=== PATIENT | female | born 1970 | race Caucasian/White ===

== ENCOUNTER 2020-08-21 12:48 | Outpatient (REF) | payer OTHER, SELFPAY ==
--- NOTE | 2020-08-21 | US_ITS ---
EXAMINATION: US ULTRASOUND-GUIDED CERVICAL LYMPH NODE FINE-NEEDLE ASPIRATION CLINICAL INFORMATION: Hari's thyroiditis and increasing cervical lymphadenopathy. COMPARISON: Previous thyroid ultrasounds most recent 08/14/2020. TECHNIQUE: Procedure and risks and benefits including bleeding and infection were discussed with the patient and informed consent was obtained. The left neck was prepped and draped in the usual sterile fashion. The skin and soft tissues were anesthetized with 1% lidocaine plain. Using ultrasound guidance and a 22-gauge needle, access to the largest left cervical lymph node in the submandibular region was obtained. Two 22-gauge FNA specimens were obtained. Reviewing pathologist stated adequate tissue specimen and that fine-needle aspiration of a right cervical lymph node was not needed. Specimen was sent for cytology and flow cytometry studies. FINDINGS: There are bilateral cervical lymph nodes. Largest lymph node is in the left submandibular region measuring 2.9 x 0.9 x 1.2 cm in sagittal, AP and transverse dimension was targeted for fine-needle aspiration. Again, it is uncertain whether this represents a conglomerate rajwinder mass/2 adjacent lymph nodes or a single lymph node. IMPRESSION: Ultrasound-guided level 2 left submandibular cervical lymph node fine-needle aspiration.
[2020-08-21] MEDS: Lidocaine HCl 1 % MPF 5 ML VIAL SUBCUT (14:44)
[2020-08-22 18:25] LABS: LLE Markers 23
== END 2020-08-21 12:49 | disposition home or self-care (01) ==
LOC: HO.US 12:48
PROVIDERS: PCP Internal Medicine; Visit Provider Family Medicine Adult Medicine
DX: R59.0 Localized enlarged lymph nodes (principal); E06.3 Autoimmune thyroiditis
CPT/HCPCS: 10005; 36415; 38505; 76942; 88172; 88173; 88184; 88185; 88189; 88300

== ENCOUNTER 2020-09-03 07:52 | Outpatient (REF) | payer OTHER, SELFPAY ==
--- NOTE | 2020-09-03 | PFT_ITS ---
INDICATIONS: Shortness of breath. SPIROMETRY: The FEV1 to FVC of 77% with an FEV1 of 2.39 L which is 80% predicted and FVC of 3.13 L which is 89% predicted. No significant response to bronchodilators noted. Maximum voluntary ventilation 96% predicted with an expiratory reserve volume of 50% predicted. DIFFUSION CAPACITY: DLCO 87% predicted. Flow volume loop appears to be completely normal. COMPARISONS: None. INTERPRETATION: No obstructive nor restrictive ventilatory defects identified. No significant response to bronchodilators noted, although she does have slight evidence of small airways disease. Lung volumes are normal and diffusion capacity is within normal limits. If asthma is in the differential, a methacholine challenge may be helpful in assessing for hyperreactive airways, otherwise clinical correlation warranted. MD ESTER Cohen/MODColton / [phone]
== END 2020-09-03 07:53 | disposition home or self-care (01) ==
LOC: HO.RESP 07:52
PROVIDERS: Visit Provider Hospitalist
DX: J40 Bronchitis, not specified as acute or chronic (principal)
CPT/HCPCS: 94060; 94727; 94729

== ENCOUNTER 2020-09-07 07:12 | Outpatient (REF) | payer OTHER, SELFPAY ==
[2020-09-07 07:51] LABS: COVID-19 Test Negative (Negative)
== END 2020-09-07 07:13 | disposition home or self-care (01) ==
LOC: HO.LAB 07:12
PROVIDERS: Visit Provider Internal Medicine
DX: Z20.828 Contact with and (suspected) exposure to other viral communicable diseases (principal)
CPT/HCPCS: 87635

== ENCOUNTER → 2020-09-10 08:29 | Outpatient (BNVA) | payer OTHER, SELFPAY | PROVIDERS: PCP Internal Medicine; Referring Provider Internal Medicine; Visit Provider Hospitalist | DX: Z76.89 Persons encountering health services in other specified circumstances (principal) ==

== ENCOUNTER 2020-09-10 10:07 | Outpatient (REF) | payer OTHER, SELFPAY ==
[2020-09-10 10:39] LABS: COVID-19 Test Negative (Negative)
== END 2020-09-10 10:08 | disposition home or self-care (01) ==
LOC: HO.LAB 10:07
PROVIDERS: Visit Provider Internal Medicine
DX: Z20.828 Contact with and (suspected) exposure to other viral communicable diseases (principal)
CPT/HCPCS: 87635

== ENCOUNTER 2020-10-28 05:39 | Outpatient (REF) | payer OTHER, SELFPAY ==
--- NOTE | 2020-10-28 05:43 | CT_ITS ---
EXAMINATION: CT CHEST WITHOUT CONTRAST CLINICAL INFORMATION: Other nonspecific abnormal finding of lung field. COMPARISON: CT chest 01/18/2020 TECHNIQUE: Multidetector volumetric CT imaging of the chest was done. Axial MIP volume rendering provided. Sagittal and coronal reformatted images were obtained. This CT examination was performed using dose optimization techniques as appropriate, variously including the following: *Automated exposure control *Adjustment of mA and/or kV according to patient size (this includes techniques or standardized protocols for targeted exams where dose is matched to indication/reason for exam; i.e. extremities or head) *Use of iterative reconstruction technique DLP: 101 mGy-cm FINDINGS: STATION DETECTIVE: Unremarkable. LUNGS: The lungs are hyperinflated with bibasilar atelectasis. There is a 5 mm subpleural-based nodule left upper lobe laterally axial image 167/7, 3 mm nodule left upper lobe axial image 81/7, a pleural-based 4 mm nodule right upper lobe posteriorly image 80/7, 2 mm intrabronchial nodule left upper lobe axial image 196/7, 3 mm intrafissural nodule right minor fissure axial image 294/7. These nodules are stable. No acute pneumonic process, mass or ground-glass density seen. MEDIASTINUM: The central trachea and bronchi are widely patent. The thyroid lobes are symmetrical and normal. No abnormal mediastinal or hilar lymph nodes seen. The heart size and the great vessels are normal caliber. No pericardial effusion seen. PLEURA: There is no pleural effusion. No pleural mass or thickening. AXILLA: No lymphadenopathy. There are bilateral breast prostheses present. The rest of the chest wall is unremarkable. UPPER ABDOMEN: Visualized liver, spleen, pancreas, and bilateral adrenal glands are unremarkable. OSSEOUS STRUCTURES: There is mild spondylosis mid and lower dorsal spine. No lytic or sclerotic process seen. CT/CT chest wo con IMPRESSION: Stable bilateral pulmonary nodules. No new nodules seen. No abnormal mediastinal or axillary adenopathy.
== END 2020-10-28 05:40 | disposition home or self-care (01) ==
LOC: HO.CT 05:39
PROVIDERS: Visit Provider Hospitalist
DX: R91.8 Other nonspecific abnormal finding of lung field (principal)
CPT/HCPCS: 71250

== ENCOUNTER → 2021-02-11 08:37 | Outpatient (BNVA) | payer OTHER, SELFPAY | PROVIDERS: PCP Internal Medicine; Visit Provider Hospitalist ==

== ENCOUNTER 2021-02-16 22:59 | Outpatient (REF) | payer OTHER, SELFPAY ==
[2021-02-16 23:36] LABS: COVID-19 Test Negative (Negative)
== END 2021-02-16 23:00 | disposition home or self-care (01) ==
LOC: HO.EMPCOV 22:59
PROVIDERS: Visit Provider Internal Medicine
DX: Z20.822 Contact with and (suspected) exposure to COVID-19 (principal)
CPT/HCPCS: 36415; 87635

== ENCOUNTER → 2021-04-28 08:32 | Outpatient (BNVA) | payer OTHER, SELFPAY | PROVIDERS: PCP Internal Medicine; Visit Provider Internal Medicine ==

== ENCOUNTER → 2021-05-12 07:22 | Outpatient (REF) | payer OTHER, SELFPAY ==
--- NOTE | 2021-05-12 07:27 | CA_ITS ---
Transthoracic Echocardiogram Patient (Last, First, Middle): Breana Masters M Gender: Female Date of : 1970 Age: 51 Procedure Date: 05/12/2021 Procedure Type: Transthoracic Echocardiogram Location: OP Height: 162.56 cm Weight: 63.5 kg BSA: 1.68 m2 Heart Rate: bpm BP: 110 / 70 mmHg Shingler: AYSHA Alex MD: Sebastien Boykin MD Proof Technician Helper: Derick Flores MD Symptoms: I27.20 - Pulmonary hypertension, unspecified Study Quality: Fair ECG Rhythm: Sinus Conclusions: - Normal study with no clear evidence of pulmonary hypertension Findings Left Ventricle Normal left ventricular size, thickness, and systolic function. Spectral Doppler is indicative of a normal filling pattern. Right Ventricle Normal right ventricular cavity size and systolic function. Atria Both atria are normal in size. There is lipomatous hypertrophy of the interatrial septum. There is no evidence of interatrial shunt. Aortic Valve Normal aortic valve structure and function. There is no aortic valve stenosis. There is no aortic valve regurgitation. Mitral Valve Normal mitral valve structure and function. There is trace mitral valve regurgitation. There is no mitral valve stenosis. Pulmonic Valve The pulmonic valve is likely normal. There is trace pulmonic valve regurgitation. Tricuspid Valve Normal tricuspid valve structure. There is trace tricuspid valve regurgitation. The right ventricular systolic pressure is normal. The right ventricular systolic pressure is 20 mmHg. Normal right atrial pressure. There is no evidence of pulmonary hypertension. Great Vessels All visible segments of the aorta are normal in size. The pulmonary artery was not well visualized. Venous The inferior vena cava is normal in size and collapses greater than 50% with inspiration. Pericardium/Pleural There is no evidence of pericardial effusion. Prior Study Comparison No prior study available for comparison. Measurements 2D Linear Measurements IVSd: 0.80 0.6-0.9/0.6-1.0 cm LVIDd: 4.07 3.9-5.3/4.2-5.9 cm LVIDd Index: 2.42 2.4-3.2/2.2-3.1 cm/m2 LVIDs: 2.55 2.0-3.6 cm LVPWd: 0.83 0.7-1.1 cm Ao Root: 2.90 2.1-3.5 cm LA Diam: 3.20 2.7-3.8/3.0-4.0 cm LAIDs Index: 1.90 1.5-2.3 cm/m2 LV Mass: 122.38 67-162/88-224 g LV Mass Index: 72.85 43-95/49-115 g/m2 LVOT Diam: 1.90 3.0+(-)1.3 cm 2D Systolic Function EF 4C: 64.60 >55% EF 2C: 66.10 >55% EF BiP: 63.60 >55% Mitral Valve MV Pk E: 1.02 MV PK A: 0.59 MV Decel Time: 259.00 E/A: 1.70 E'Lateral: 10.60 E'Medial: 9.90 E/E' Med: 10.30 E/E' Lat: 9.60 PHT: 76.00 MVA PHT: 2.89 Decel [place]: 3.95 Aortic Valve AoV Pk Octavio: 1.55 AoV Mn Octavio: 1.05 AoV VTI: 0.35 AoV Pk Grad: 10.00 Aov Mn Grad: 5.00 OZZIE Cont.VTI: 2.67 LVOT LVOT Pk Octavio: 1.52 LVOT Mn Octavio: 0.95 LVOT VTI: 0.32 LVOT Pk Grad: 9.00 LVOT Mn Grad: 4.00 LVOT Diam: 1.90 LVOT Area: 2.84 Diastolic Function MV Pk E: 1.02 MV Pk A: 0.59 E/A: 1.70 E'Medial: 9.90 E/E' Med: 10.30 E' Laterial: 10.60 E/E' Lat: 9.60 Tricuspid Valve TR Pk Octavio: 2.07 TR Pk Grad: 17.00 RA Press: 3.00 RVSP: 20.00 Great Vessels Aorta Ao Root-2D: 2.90 2.0-3.7 cm Ao Asc: 2.80 2.1-3.4 cm Ao Arch: 2.70 Updated in Other Vendor System with Status of Final Derick Flores MD electronically signed on 05/12/2021 11:24:41 AM with status of Final
== END ==
LOC: HO.CARD 07:22
PROVIDERS: PCP Internal Medicine; Visit Provider Hospitalist
DX: I27.20 Pulmonary hypertension, unspecified (principal)
CPT/HCPCS: 93306

== ENCOUNTER 2021-06-03 07:31 | Outpatient (REF) | payer OTHER, SELFPAY ==
--- NOTE | ~2021-06-03 | XR_ITS ---
EXAMINATION: XR CERVICAL SPINE CLINICAL INFORMATION: Neck pain. COMPARISON: None TECHNIQUE: 2 views of the cervical spine were obtained. FINDINGS: There is normal cervical lordosis. The vertebral heights and alignment is normal. There is loss of C4-C5, C5-C6, C6-C7 disc heights with mild posterior spondylosis. There is no visible acute fracture, dislocation or subluxation. No lytic process seen. There is mild right C3-C4 facet joint and hypertrophy. XR/XR cervical spine 2V IMPRESSION: Degenerative disc changes C5-C6 and C6-C7 disc levels with ventral and posterior cervical spondylosis. Mild right C3-C4 facet joint arthropathy and hypertrophy.
[2021-06-03 08:58] LABS: Free T4 (Free Thyroxine) 0.91 ng/dL (0.71-1.85); Thyroid Stimulating Hormone 5.13 uIU/mL (0.32-4.0); Vitamin D 25-OH Total 29.2 ng/mL (>30)
== END 2021-06-03 07:32 | disposition home or self-care (01) ==
LOC: HO.LAB 07:31
PROVIDERS: Absent Provider Internal Medicine; PCP Internal Medicine; Visit Provider Internal Medicine
DX: J45.40 Moderate persistent asthma, uncomplicated (principal); E03.9 Hypothyroidism, unspecified; E55.9 Vitamin D deficiency, unspecified; M54.2 Cervicalgia; F17.210 Nicotine dependence, cigarettes, uncomplicated; R91.8 Other nonspecific abnormal finding of lung field; Z79.899 Other long term (current) drug therapy
CPT/HCPCS: 36415; 72040; 82306; 84439; 84443

== ENCOUNTER 2021-07-01 07:23 | Outpatient (REF) | payer OTHER, SELFPAY ==
--- NOTE | ~2021-07-01 | US_ITS ---
EXAMINATION: US THYROID CLINICAL INFORMATION: Nontoxic single thyroid nodule. COMPARISON: Ultrasound soft tissue head/neck thyroid dated 08/14/2020 and 06/30/2019. TECHNIQUE: Linear transducer grayscale and color Doppler examination with attention to the region of the thyroid. FINDINGS: SIZE: Measurements of the thyroid lobes and nodules are given in sagittal, anteroposterior and transverse dimensions respectively. Right Thyroid Lobe: 5.3 x 2.1 x 1.6 cm, volume 9.5 mL. Previously 5.8 x 1.9 x 1.7 cm, volume 9.8 mL. Parenchyma: The gland echotexture is heterogeneous. Thyroid vascularity is increased. Left Thyroid Lobe: 4.8 x 1.6 x 1.3 cm, volume 5.1 mL. Previously 5.3 x 1.7 x 1.5 cm, volume 7.1 mL. Parenchyma: The gland echotexture is heterogeneous. Thyroid vascularity is increased. Isthmus: 0.4 cm in maximum AP dimension. Previously 0.4 cm. Estimated total number of nodules greater than or equal to 1 cm: 1. Competitive Intelligence Analyst nodules are described as follows: 1. Location: Right mid/inferior. Size: 1.2 x 0.6 x 0.9 cm, volume 0.3 mL. Previously: 1.0 x 1.0 x 1.1 cm, volume 0.6 mL. Nodule characteristics: Composition: Solid (2). Echogenicity: Hyperechoic (1). Shape: Not taller than wide (0). Margins: Smooth (0). Echogenic Foci: None (0). ACR TI-RADS total points: 3 ACR TI-RADS category: 3 Significant change in size (>/= 20% in 2 dimensions and minimal increase of 2 mm or 50% or greater increase in volume): No Change in features: No Change in ACR TI-RADS risk category: n/a NODES: Bilateral cervical lymph nodes measuring up to 3.1 x 0.5 x 1.1 cm in the right as well as 1.4 x 0.2 x 0.6 cm and 1.8 x 0.6 x 0.7 cm on the left. The right-sided cervical lymph node is similar when compared to the prior examination. The left-sided cervical lymph nodes have decreased in size when compared to the prior examination. US/US thyroid IMPRESSION: 1. Heterogeneous thyroid parenchyma with slightly increased vascularity. Findings are similar when compared to the prior examination and can be seen in the setting of an infectious or inflammatory process. 2. Redemonstration of a right thyroid nodule, not significantly changed when compared to the prior examination. 3. No new thyroid nodule. 4. Bilateral cervical lymph nodes, unchanged on the right and decreased on the left when compared to the prior examination. ACR TI-RADS RECOMMENDATION REFERENCE: Ultrasound-guided fine-needle aspiration, followup ultrasound, no further follow up. * TR1 (0 point) and TR 2 (2 points): No FNA or follow up * TR3 (3 points): FNA if more than or equal to 2.5 cm in maximum dimension, followup ultrasound in 1, 3 and 5 years if 1.5 to 2.4 cm in maximum dimension. * TR4 (4-6 points): FNA if more than or equal to 1.5 cm in maximum dimension, followup ultrasound in 1, 2, 3 and 5 years if 1 to 1.4 cm in maximum dimension. * TR5 (more than or equal to 7 points): FNA if more than or equal to 1 cm in maximum dimension, followup ultrasound every year for 5 years if 0.5 to 0.9 cm in maximum dimension. * TR3, TR4 or TR5 nodules that are below the size threshold for follow up receive no follow up.
== END 2021-07-01 07:24 | disposition home or self-care (01) ==
LOC: HO.US 07:23
PROVIDERS: Visit Provider Internal Medicine
DX: E04.1 Nontoxic single thyroid nodule (principal)
CPT/HCPCS: 76536

== ENCOUNTER 2021-07-09 19:57 | Emergency (ER) | payer OTHER, SELFPAY ==
[2021-07-09 20:13] VITALS: BP 139/83; PULSE 85; RESP 18; TEMP 36.9; O2SAT 96; BMI 25.2
[2021-07-09 21:10] VITALS: BP 143/66; PULSE 77; RESP 18; TEMP 36.8; O2SAT 96
[2021-07-09 21:26] LABS: Glucose Urine UA NEG (NEG); Leukocyte Esterase Urine NEG (NEG); Nitrite Urine NEG (NEG); Specific Gravity - Urine <= 1.005 (1.005-1.025); UACC Culture Trigger NO; Urine Blood TRACE (NEG); Urine Ketones NEG (NEG); Urine Protein NEG (NEG-TRACE)
[2021-07-09 21:29] LABS: Appearance Urine CLEAR; Color Urine YELLOW
[2021-07-09 21:35] LABS: Bacteria Urine 1+ /LPF; Squamous Epithelial Cell Urine 1+ /LPF; WBC Urine 0-2 /HPF (0-4)
--- NOTE | 2021-07-09 22:35 | ED_ITS ---
HPI - Female Genitourinary General Chief complaint: Urogenital-Female Stated complaint: kidney pain for abt week Time Seen by Provider: 07/09/21 22:34 Source: patient Mode of arrival: ambulatory History of Present Illness HPI Narrative: In 2-3 weeks of intermittent frequent urination with polydipsia and now over the past 2-3 days noting significant fatigue with headache but denies any GI or symptoms. Related Data Home Medications Medication Instructions Recorded Confirmed clonazepam 1 mg tablet 1 mg PO TID PRN 09/10/20 06/03/21 duloxetine 30 mg capsule,delayed 30 mg PO DAILY 09/10/20 06/03/21 release lorazepam 1 mg tablet 1 mg PO BID 09/10/20 06/03/21 ondansetron HCl 4 mg tablet 4 mg PO DAILY PRN tab 04/28/21 06/03/21 lamotrigine 100 mg tablet 175 mg PO DAILY tab 06/03/21 06/03/21 vortioxetine 20 mg tablet 20 mg PO DAILY 06/03/21 06/03/21 Previous Rx's Medication Instructions Recorded albuterol sulfate 90 mcg/actuation 2 inh INHALATION Q6H PRN 30 Days 09/10/20 aerosol inhaler #18 g fluticasone propionate 115 2 puff INHALATION Q12H 30 Days #12 09/19/20 mcg-salmeterol 21 mcg/actuation g HFA inhaler (Advair HFA) cholecalciferol (vitamin D3) 50 50 mcg PO DAILY 30 Days #30 cap 05/07/21 mcg (2,000 unit) capsule ibuprofen 800 mg tablet 800 mg PO Q8H #90 tab 05/26/21 Synthroid 75 mcg tablet 75 mcg PO DAILY 30 Days #30 tab NS 07/01/21 (levothyroxine) Allergies Allergy/AdvReac Type Severity Reaction Status Date / Time No Known Allergies Allergy Verified 07/09/21 20:13 [No Known Allergies*] Review of Systems Review of Systems: Pertinent positives and negatives as stated in HPI 10 point review of systems is otherwise negative. PMFSH Past Medical History Source: nursing notes reviewed Medical History Asthma Cough Hypothyroidism Pulmonary nodules Thyroid nodule Tobacco dependence Vitamin D deficiency Surgical History Hx of breast implant Hx of hysterectomy Family History Family History Father CVD (cardiovascular disease) Mental health disorder Mother Arthritis of knee Social History Social History Housing: Condominium Patient Tobacco Use Status: Current everyday Tobacco user Tobacco use type: Cigarette Cigarettes Per Day: 10 Years Smoked: 36 years e-Cigarette/Vaping Use: Never Used Second Hand Smoke Exposure: No Advance Directives: No Advance Directives Information Provided: Yes service: No Current occupational status: employed Physical Exam Vital Signs: Vital Signs: Last Vital Signs Temp 98.4 F 07/10/21 00:35 Pulse 70 07/10/21 00:35 Resp 18 07/10/21 00:35 BP 129/68 07/10/21 00:35 Pulse Ox 95 07/10/21 00:35 Body Mass Index 25.2 VITAL SIGNS: Reviewed. GENERAL: Well developed, well nourished, in no acute distress. HEAD: Normocephalic/atraumatic EYES: PERRLA, EOMI LUNGS: Normal breath sounds. No adventitious sounds or accessory muscle use. SpO2<96> CARDIOVASCULAR: Regular rate and rhythm without noted murmurs ABDOMEN: Soft, non-tender, non-distended with bowel sounds. SKIN: Inspection of the skin reveals no rashes NEUROLOGIC: Alert and oriented x 4. Strength and sensation to light touch were grossly intact x 4. Course Course Course Narrative: 51-year-old female with history and clinical presentation concerning for dehydration unknown etiology but given patient's polydipsia/polyuria as well as fatigue concern for possible new onset diabetes, infection such as UTI. Review of all investigations otherwise negative for acute findings, all results discussed with patient at bedside and she was discharged home in stable condition with recommendations to continue fluid hydration and alternating [id number] analgesics for symptoms. MDM - Female Genitourinary Lab Data Result diagrams: 07/09/21 23:30 07/09/21 23:30 Labs: Lab Results 07/09/21 07/09/21 07/09/21 Range/Units 21:20 23:30 23:30 WBC 7.0 (4.8-10.8) X10*3/uL RBC 5.03 (4.20-5.50) X10*6/uL Hgb 15.2 (12.0-16.0) g/dl Hct 45.1 (37-47) % MCV 89.7 (80-98) fL MCH 30.2 (27.0-33.0) pg MCHC 33.7 (31.0-35.0) g/dl RDW 12.3 (11.0-16.0) % Plt Count 257 (160-400) X10*3/uL MPV 9.7 (9.4-12.3) fL Immature Gran % (Auto) 0.1 (0.0-0.4) % Neut % (Auto) 56.6 (45-73) % Lymph % (Auto) 33.6 (20-40) % [place] % (Auto) 7.7 (2-11) % Eos % (Auto) 1.4 (0-4) % Baso % (Auto) 0.6 (0-2) % Lymph # (Auto) 2.4 (1.2-4.9) X10*3/uL [place] # (Auto) 0.5 (0.1-1.2) X10*3/uL Eos # (Auto) 0.1 (0.0-0.4) X10*3/uL Baso # (Auto) 0.0 (0.0-0.2) X10*3/uL Abs Immat Gran (auto) 0.01 (0.00-0.03) X10*3/uL Absolute Neuts (auto) 4.0 (2.0-8.3) X10*3/uL Absolute Nucleated RBC 0.000 (0.0-0.012) X10*3/uL Nucleated RBC % (auto) 0.0 (0.0-0.2) /100WBC Sodium 142 (135-145) mmol/L Potassium 4.7 (3.3-5.1) mmol/L Chloride 106 (96-108) mmol/L Carbon Dioxide 29 (22-29) mmol/L Anion Gap 12 (12-20) BUN 11 (9-16) mg/dL Creatinine 0.71 (0.5-1.4) mg/dL Estim Creat Clear Calc 87.0 Estimated GFR > 60 Random Glucose 93 (60-115) mg/dL Calcium 9.7 (8.4-10.2) mg/dL Total Bilirubin 0.6 (0.0-1.0) mg/dL AST 23 (5-31) U/L ALT 31 (0-31) U/L Alkaline Phosphatase 91 (39-117) U/L Total Protein 6.9 (6.5-8.0) g/dL Albumin 4.3 (3.5-5.0) g/dL Urine Color YELLOW Urine Appearance CLEAR Urine pH 6.0 (5.0-8.0) Ur Specific [place] <= 1.005 (1.005-1.025) Urine Protein NEG (NEG-TRACE) MG/DL Urine Glucose (UA) NEG (NEG) MG/DL Urine Ketones NEG (NEG) MG/DL Urine Blood TRACE (NEG) Urine Nitrite NEG (NEG) Ur Leukocyte Esterase NEG (NEG) Urine RBC 1-4 (0) /HPF Urine WBC 0-2 (0-4) /HPF Ur Squamous Epith Cells 1+ /LPF Urine Bacteria 1+ /LPF COVID-19 (CHRISTINE) (Negative) COVID-19 Clin Com 07/09/21 Range/Units 23:30 WBC (4.8-10.8) X10*3/uL RBC (4.20-5.50) X10*6/uL Hgb (12.0-16.0) g/dl Hct (37-47) % MCV (80-98) fL MCH (27.0-33.0) pg MCHC (31.0-35.0) g/dl RDW (11.0-16.0) % Plt Count (160-400) X10*3/uL MPV (9.4-12.3) fL Immature Gran % (Auto) (0.0-0.4) % Neut % (Auto) (45-73) % Lymph % (Auto) (20-40) % [place]ague % (Auto) (2-11) % Eos % (Auto) (0-4) % Baso % (Auto) (0-2) % Lymph # (Auto) (1.2-4.9) X10*3/uL [place] # (Auto) (0.1-1.2) X10*3/uL Eos # (Auto) (0.0-0.4) X10*3/uL Baso # (Auto) (0.0-0.2) X10*3/uL Abs Immat Gran (auto) (0.00-0.03) X10*3/uL Absolute Neuts (auto) (2.0-8.3) X10*3/uL Absolute Nucleated RBC (0.0-0.012) X10*3/uL Nucleated RBC % (auto) (0.0-0.2) /100WBC Sodium (135-145) mmol/L Potassium (3.3-5.1) mmol/L Chloride (96-108) mmol/L Carbon Dioxide (22-29) mmol/L Anion Gap (12-20) BUN (9-16) mg/dL Creatinine (0.5-1.4) mg/dL Estim Creat Clear Calc Estimated GFR Random Glucose (60-115) mg/dL Calcium (8.4-10.2) mg/dL Total Bilirubin (0.0-1.0) mg/dL AST (5-31) U/L ALT (0-31) U/L Alkaline Phosphatase (39-117) U/L Total Protein (6.5-8.0) g/dL Albumin (3.5-5.0) g/dL Urine Color Urine Appearance Urine pH (5.0-8.0) Ur Specific [place]ham (1.005-1.025) Urine Protein (NEG-TRACE) MG/DL Urine Glucose (UA) (NEG) MG/DL Urine Ketones (NEG) MG/DL Urine Blood (NEG) Urine Nitrite (NEG) Ur Leukocyte Esterase (NEG) Urine RBC (0) /HPF Urine WBC (0-4) /HPF Ur Squamous Epith Cells /LPF Urine Bacteria /LPF COVID-19 (CHRISTINE) Negative (Negative) COVID-19 Clin Com See Note Discharge Plan Discharge Clinical Impression: Urinary frequency, Body aches Patient Disposition: Home, Self-Care Instructions: Urinary Urgency and Frequency (DC) Additional Instructions: 1. Continue stay well hydrated. 2. Tylenol 1000 mg, orally, every 6 hours as needed for body aches and headache. 3. Ibuprofen 400 mg, orally with milk or food, every 6 hours as needed for body aches and headache. May take this in conjunction with the Tylenol for improved symptom relief. 4. Follow-up with your primary care provider the next 2-3 days for re-e valuation. Return to the ER for acute worsening of your symptoms. Prescriptions: No Action Advair HFA 115-21 mcg/actuation HFA aerosol inhaler 2 puff inhalation Q12H 30 Days Qty: 12 RF: 11 cholecalciferol (vitamin D3) 50 mcg (2,000 unit) capsule 50 mcg PO DAILY 30 Days Qty: 30 RF: 11 levothyroxine [Synthroid] 75 mcg tablet 75 mcg PO DAILY 30 Days Qty: 30 RF: 1 ibuprofen 800 mg tablet 800 mg PO Q8H Qty: 90 RF: 8 lamotrigine 100 mg tablet 175 mg PO DAILY RF: 0 clonazepam 1 mg tablet 1 mg PO TID PRNRF: 0 duloxetine 30 mg capsule,delayed release(DR/EC) 30 mg PO DAILY RF: 0 lorazepam 1 mg tablet 1 mg PO BID RF: 0 albuterol sulfate 90 mcg/actuation HFA aerosol inhaler 2 inh inhalation Q6H PRN (Reason: shortness of breath or wheezing) 30 Days Qty: 18 RF: 12 ondansetron HCl 4 mg tablet 4 mg PO DAILY PRNRF: 0 vortioxetine 20 mg tablet 20 mg PO DAILY RF: 0 Referrals: Mansoor Pisano MD [Primary Care Provider] - 2 days
[2021-07-09 23:36] LABS: Basophils Percent Auto 0.6 % (0-2); Eosinophils Absolute Auto 0.1 X10*3/uL (0.0-0.4); Eosinophils Percent Auto 1.4 % (0-4); Hematocrit 45.1 % (37-47); Hemoglobin 15.2 g/dl (12.0-16.0); Imm Gran Abs Auto 0.01 X10*3/uL (0.00-0.03); Imm Gran Pct Auto 0.1 % (0.0-0.4); Lymphocytes Absolute Auto 2.4 X10*3/uL (1.2-4.9); Lymphocytes Percent Auto 33.6 % (20-40); MANUAL DIFF FLAG NO; Mean Corpuscular HGB Conc 33.7 g/dl (31.0-35.0); Mean Corpuscular Hemoglobin 30.2 pg (27.0-33.0); Mean Corpuscular Volume 89.7 fL (80-98); Mean Platelet Volume 9.7 fL (9.4-12.3); Monocytes Absolute Auto 0.5 X10*3/uL (0.1-1.2); Monocytes Percent Auto 7.7 % (2-11); Neutrophils Percent Auto 56.6 % (45-73); Platelet Count 257 X10*3/uL (160-400); Red Blood Count 5.03 X10*6/uL (4.20-5.50); Red Cell Distribution Width 12.3 % (11.0-16.0)
[2021-07-09 23:51] LABS: COVID-19 Test Negative (Negative)
[2021-07-10 00:11] LABS: Alanine Aminotransferase 31 U/L (0-31); Albumin Level 4.3 g/dL (3.5-5.0); Alkaline Phosphatase 91 U/L (39-117); Anion Gap 12 (12-20); Aspartate Amino Transferase 23 U/L (5-31); Bilirubin Total 0.6 mg/dL (0.0-1.0); Blood Urea Nitrogen 11 mg/dL (9-16); Calcium 9.7 mg/dL (8.4-10.2); Carbon Dioxide 29 mmol/L (22-29); Chloride 106 mmol/L (96-108); Estimated Glomerular Filt Rate > 60; Glucose Random 93 mg/dL (60-115); Potassium 4.7 mmol/L (3.3-5.1); Sodium 142 mmol/L (135-145); Total Protein 6.9 g/dL (6.5-8.0)
[2021-07-10 00:35] VITALS: BP 129/68; PULSE 70; RESP 18; TEMP 36.9; O2SAT 95
== END 2021-07-10 01:19 | disposition home or self-care (01) ==
PROVIDERS: Emergency Provider Student in an Organized Health Care Education/Training Program; PCP Internal Medicine
DX: R35.0 Frequency of micturition (principal); M79.10 Myalgia, unspecified site; Z20.822 Contact with and (suspected) exposure to COVID-19; F17.210 Nicotine dependence, cigarettes, uncomplicated; Z71.6 Tobacco abuse counseling; Z79.899 Other long term (current) drug therapy
CPT/HCPCS: 36415; 80053; 81001; 85025; 87635; 99283

== ENCOUNTER 2021-08-19 06:58 | Outpatient (RCR) | payer OTHER, SELFPAY ==
--- NOTE | 2021-08-20 15:14 | MHC.PT.EP ---
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 Upon exam she demonstrates pain with cervical SB and rotation, strong/painful resisted movements, increased tissue tension, altered posture and increased pain. Functional limitations include decreased ability to perform homemaking and self care tasks, decreased ability to perform work tasks, disrupted sleep. She reports decreased ability to perform recreational and fitness activities, disrupted sleep. Frequency and Duration: The patient will be seen 2 x week for 3 weeks Short Term Goals: Initate HEP and promote self management of symptoms in 2 visits Correction Goals: Full, painfree cervical ROM in 3 weeks To report ability to drive car without neck pain nor locking in 3 weeks To perform all homemaking and work tasks without pain greater than 2/10 in 3 weeks Treatment Plan: Modalities to reduce pain, spasms and effusion. Manual therapy to restore motion and function. Therapeutic exercise to improve strength and flexibility. Neuromuscular re-education for posture and balance. Therapeutic activities to return to functional activities of daily living. Electronically signed by: Maryellen Burks PT, DPT Please sign and return to therapist. Thank you for your referral.
--- NOTE | 2021-09-10 15:10 | MHC.PT.DC ---
[facility] [place] Office [place] Office [place] Office [address] [phone] F: [phone] F: [phone] F: [phone] F: [phone] Physical Therapy Discharge Report Diagnosis: CERVICALGIA Date of Surgery: NA Date of Evaluation: 08/20/21 Date of Discharge: 08/28/21 Treatments to Date: 2 Cancellations to Date: 0 No Shows to Date: 0 Discharge Status: Discharge Summary: Breana attended only initial eval and called to self DC herself from therapy. Current status is unknown. Electronically signed by: Maryellen Burks PT, DPT Please sign and return to therapist. Thank you for your referral.
== END 2021-09-10 15:13 | disposition home or self-care (01) ==
LOC: HO.PT 06:58
PROVIDERS: PCP Internal Medicine; Visit Provider Internal Medicine
DX: M54.2 Cervicalgia (principal)
CPT/HCPCS: 97110; 97140; 97161

== ENCOUNTER 2021-10-19 05:14 | Outpatient (REF) | payer OTHER, SELFPAY ==
[2021-10-19 05:38] LABS: COVID-19 Test Negative (Negative)
== END 2021-10-19 05:15 | disposition home or self-care (01) ==
LOC: HO.LAB 05:14
PROVIDERS: PCP Internal Medicine; Visit Provider Internal Medicine
DX: Z20.822 Contact with and (suspected) exposure to COVID-19 (principal)
CPT/HCPCS: 36415; 87635

== ENCOUNTER 2021-10-23 07:00 | Outpatient (REF) | payer OTHER, SELFPAY ==
[2021-10-23 07:52] LABS: Free T4 (Free Thyroxine) 1.17 ng/dL (0.71-1.85); Thyroid Stimulating Hormone 2.55 uIU/mL (0.32-4.0)
== END 2021-10-23 07:01 | disposition home or self-care (01) ==
LOC: HO.LAB 07:00
PROVIDERS: PCP Internal Medicine; Visit Provider Internal Medicine
DX: E03.9 Hypothyroidism, unspecified (principal)
CPT/HCPCS: 36415; 84439; 84443

== ENCOUNTER 2021-11-08 03:55 | Outpatient (REF) | payer OTHER, SELFPAY ==
[2021-11-08 04:22] LABS: COVID-19 Test Negative (Negative)
== END 2021-11-08 03:56 | disposition home or self-care (01) ==
LOC: HO.LAB 03:55
PROVIDERS: Visit Provider Internal Medicine
DX: Z20.822 Contact with and (suspected) exposure to COVID-19 (principal)
CPT/HCPCS: 36415; 87635

== ENCOUNTER 2021-11-21 13:48 | Outpatient (REF) | payer OTHER, SELFPAY ==
--- NOTE | ~2021-11-21 | CT_ITS ---
EXAMINATION: CT CHEST SCREENING CLINICAL INFORMATION: Current smoker. 36 pack year history. COMPARISON: Previous chest CT most recent October 2020 TECHNIQUE: Multidetector volumetric CT imaging of the chest is performed without contrast using low dose technique. Additional 2D coronal and sagittal reformatted images and axial 3D maximum intensity projection (MIP) images are generated on the CT workstation. This CT examination was performed using dose optimization techniques as appropriate, variously including the following: *Automated exposure control *Adjustment of mA and/or kV according to patient size (this includes techniques or standardized protocols for targeted exams where dose is matched to indication/reason for exam; i.e. extremities or head) *Use of iterative reconstruction technique DLP: 40 mGy-cm FINDINGS: LUNGS: The small pulmonary nodules are stable. Largest pulmonary nodule is a 3 x 5 mm heterogeneous or semisolid left upper lobe nodule axial image 145 series 5. No new pulmonary nodule is seen. There is scarring or subsegmental atelectasis at the lung bases that is stable. There is no endobronchial or endotracheal lesion. MEDIASTINUM: The mediastinum is normal. PLEURA: There is no pleural effusion. No pleural mass or thickening. AXILLA: There is bilateral axillary lymphadenopathy, left greater than right. Largest lymph nodes are upper normal in size no enlarged lymph nodes are seen. There are bilateral breast implants. No chest wall mass is seen. UPPER ABDOMEN: Unremarkable OSSEOUS STRUCTURES: There are mild degenerative changes of the spine. CT/CT lung screening IMPRESSION: Stable small pulmonary nodules. ASSESSMENT: Lung-RADS category 2: Benign RECOMMENDATION: Annual low-dose chest CT follow-up recommended.
== END 2021-11-21 13:49 | disposition home or self-care (01) ==
LOC: HO.CT 13:48
PROVIDERS: Visit Provider Physician Assistant Medical
DX: Z12.2 Encounter for screening for malignant neoplasm of respiratory organs (principal); F17.210 Nicotine dependence, cigarettes, uncomplicated
CPT/HCPCS: 71271; G0296

== ENCOUNTER → 2021-12-04 08:06 | Outpatient (BNVA) | payer OTHER, SELFPAY | PROVIDERS: PCP Internal Medicine; Visit Provider Hospitalist ==

== ENCOUNTER → 2022-02-25 08:28 | Outpatient (BNVA) | payer OTHER, SELFPAY | PROVIDERS: PCP Internal Medicine; Visit Provider Hospitalist | DX: Z13.89 Encounter for screening for other disorder (principal) ==

== ENCOUNTER 2022-03-12 06:33 | Day surgery (SDC) | payer OTHER, SELFPAY ==
[2022-03-06 10:43] VITALS: BMI 24.0
--- NOTE | 2022-03-11 09:51 | P.CONAN_ITS ---
Documented by User: Rachael Mars NP 03/11/22 09:56 HPI - Anesthesia Eval Consult details Narrative: 52yo F for Bronchoscopy Fiberoptic PMFSH Active Problems Active Problems: All Active Problems (Updated 11/28/21 @ 09:06 by Mansoor Pisano MD) Flank pain (Acute) Cough (Acute) Asthma (Acute) Pulmonary nodules (Acute) Personal history of nicotine dependence (Acute) Hypothyroidism (Acute) Thyroid nodule (Acute) Vitamin D deficiency (Acute) Past Medical History Medical History (Updated 11/28/21 @ 09:06 by Mansoor Pisano MD) Asthma Cough Hypothyroidism Personal history of nicotine dependence Pulmonary nodules Thyroid nodule Vitamin D deficiency Family History Family History Father CVD (cardiovascular disease) Mental health disorder Mother Arthritis of knee Surgical History Surgical History History of colonoscopy Hx of breast implant Hx of hysterectomy S/P thyroid biopsy Social History Social History Housing: Condominium Patient Tobacco Use Status: Current everyday Tobacco user Tobacco use type: Cigarette Cigarettes Per Day: 10 Years Smoked: 36 e-Cigarette/Vaping Use: Never Used Second Hand Smoke Exposure: No Advance Directives: No Advance Directives Information Provided: Yes Advance Directives on File: No service: No Current occupational status: employed Cognitive needs: No Hearing needs: No Vision needs: No Meds Allergies Allergy/AdvReac Type Severity Reaction Status Date / Time No Known Allergies Allergy Verified 02/26/22 07:41 [No Known Allergies*] Home Medications Medication Instructions Recorded Confirmed Last Taken Type clonazepam 1 mg tablet 1 mg PO TID PRN 09/10/20 02/26/22 Unknown History duloxetine 30 mg capsule,delayed 30 mg PO DAILY 09/10/20 02/26/22 Unknown History release ondansetron HCl 4 mg tablet 4 mg PO DAILY PRN tab 04/28/21 02/26/22 Unknown History lamotrigine 200 mg tablet 200 mg PO DAILY 08/27/21 02/26/22 Unknown History levothyroxine 50 mcg tablet 50 mcg PO DAILY 08/27/21 02/26/22 Unknown History vortioxetine 10 mg tablet 10 mg PO DAILY 12/04/21 02/26/22 Unknown History (Trintellix) Exam Exam Date and Time: March 11, 2022 0951 Height,Weight and Vital Signs: Height 5 ft 4 in Weight 63.503 kg Narrative Narrative: ECHO 04/2021 Conclusions: -? Normal study with no clear evidence of pulmonary hypertension PFT 08/2020 INTERPRETATION:? No obstructive nor restrictive ventilatory defects identified.? No significant response to bronchodilators noted, although she does have slight evidence of small airways disease.? Lung volumes are normal and diffusion capacity is within normal limits.? If asthma is in the differential, a methacholine challenge may be helpful in assessing for hyperreactive airways, otherwise clinical correlation warranted. Assessment and Plan Assessment Anesthesia Assessment: Chart Reviewed Documented by User: Huyen James MD 03/12/22 08:55 [facility] Active Problems Active Problems: All Active Problems (Updated 11/28/21 @ 09:06 by Mansoor Pisano MD) Flank pain (Acute) Cough (Acute) Asthma (Acute). Inhaler prn Pulmonary nodules (Acute) Personal history of nicotine dependence (Acute) Hypothyroidism (Acute) Thyroid nodule (Acute) Vitamin D deficiency (Acute) Smoker. Last cigarette yesterday evening Past Medical History Medical History (Updated 11/28/21 @ 09:06 by Mansoor Pisano MD) Asthma Cough Hypothyroidism Personal history of nicotine dependence Pulmonary nodules Thyroid nodule Vitamin D deficiency Family History Family History Father CVD (cardiovascular disease) Mental health disorder Mother Arthritis of knee Family history of problems with anesthesia: No Surgical History Surgical History History of colonoscopy Hx of breast implant Hx of hysterectomy S/P thyroid biopsy History of Problems with Anesthesia: No Social History Social History Housing: Condominium Patient Tobacco Use Status: Current everyday Tobacco user Tobacco use type: Cigarette Cigarettes Per Day: 10 Years Smoked: 36 e-Cigarette/Vaping Use: Never Used Second Hand Smoke Exposure: No Advance Directives: No Advance Directives Information Provided: Yes Advance Directives on File: No service: No Current occupational status: employed Cognitive needs: No Hearing needs: No Vision needs: No Meds Allergies Allergy/AdvReac Type Severity Reaction Status Date / Time No Known Allergies Allergy Verified 02/26/22 07:41 [No Known Allergies*] Home Medications Medication Instructions Recorded Confirmed Last Taken Type clonazepam 1 mg tablet 1 mg PO TID PRN 09/10/20 02/26/22 Unknown History duloxetine 30 mg capsule,delayed 30 mg PO DAILY 09/10/20 02/26/22 Unknown History release ondansetron HCl 4 mg tablet 4 mg PO DAILY PRN tab 04/28/21 02/26/22 Unknown History lamotrigine 200 mg tablet 200 mg PO DAILY 08/27/21 02/26/22 Unknown History levothyroxine 50 mcg tablet 50 mcg PO DAILY 08/27/21 02/26/22 Unknown History vortioxetine 10 mg tablet 10 mg PO DAILY 12/04/21 02/26/22 Unknown History (Trintellix) Exam Height,Weight and Vital Signs: Height 5 ft 4 in Weight 63.503 kg Vital Signs Temp Pulse Resp BP Pulse Ox 98.0 F 68 18 112/69 98 03/12/22 06:51 03/12/22 06:51 03/12/22 06:51 03/12/22 06:51 03/12/22 06:51 Airway Mallampati Class: II TM Dist: >3cm Neck ROM: Full Heart: RRR Lungs: CTAB Assessment and Plan Assessment Anesthesia Assessment: Anesthesia Plan Discussed Final Anesthetic Review Family History of Problems with Anesthesia: No History of Problems with Anesthesia: No NPO: Yes ASA Class: II Final Preanesthetic Review: No Changes in Pt Med Stat, Meds/Allgs Chart Reviewed, Consent Obtained/Reviewed and Anes Risks/Benef Reviewed Patient Risk: Low Procedure Risk: Low Assessment/Block/Sedation in SS: Assess/Block/Sedation-SS Anesthetic Plan Anesthetic Plan: GA Disposition: Standard PACU
[2022-03-12] VITALS (7 sets, daily range): BP systolic 110–148; BP diastolic 51–77; PULSE 68–100; RESP 16–18; TEMP 36.3–36.9; O2SAT 92–100
[2022-03-12] MEDS: Lactated Ringers 1,000 ML 100 ML IVCONT (07:12)
--- NOTE | 2022-03-12 08:09 | MHC.SHP ---
Pre-Procedural Eval Section A Date of Service: 03/12/22 The patient is an INPATIENT: No Changes since office visit: No Cold of Flu in the past 2 weeks, No New Medical Problems, No Changes in Medication and No Patient answered all questions The History & Physical has been completed within 30 days and I have reviewed it.: No Section B Chief Complaint: abnormal findings of lung Allergies: Allergies Allergy/AdvReac Type Severity Reaction Status Date / Time No Known Allergies Allergy Verified 02/26/22 07:41 [No Known Allergies*] Plan I have reviewed the history and physical and performed a pertinent physical examination on my patient. No changes have occurred unless specified.
--- NOTE | 2022-03-12 08:47 | PM.OP ---
Brief Operative Note Date of Service: 03/12/22 Pre-op diagnosis: cough Post-op diagnosis: other (bronchomalecia, cough) Procedure: Bronchoscopy Implants: Surgeon: Sebastien Boykin MD Anesthesia: GLMA Was an Accounting Systems Analyst used for this Procedure?: No Estimated blood loss (mL): 0 Condition: stable Disposition: same day
[2022-03-12] MEDS: Albuterol Sulfate (0.083%) 2.5 MG/3 ML VIAL.NEB INHALE (09:05)
--- NOTE | 2022-03-12 23:37 | OP_ITS ---
SURGEON: Sebastien Boykin MD PREOPERATIVE DIAGNOSIS: Cough. POSTOPERATIVE DIAGNOSIS: PROCEDURE PERFORMED: Bronchoscopy. ESTIMATED BLOOD LOSS: COMPLICATIONS: ANESTHESIA: LMA. ASSISTANTS: SPECIMENS: POSTOPERATIVE DIAGNOSES: Bronchomalacia, cough, and laryngeal inflammation. ASA CLASSIFICATION: 2. DESCRIPTION OF PROCEDURE: After the patient is adequately sedated, the flexible digital bronchoscope was inserted over the LMA to the level of the larynx. The arytenoids appeared to be inflamed bilaterally, moderate and significant. The vocal cords themselves were within normal limits. They were widely open, appeared to be somewhat injected likely from coughing. No other abnormalities noted. After instilling lidocaine, the bronchoscope was then navigated to the level of the trachea. Tracheal mucosa appeared normal. The trachea also was normal in caliber and diameter. The patient did cough and she did have some excessive compression from the posterior trachealis muscle resulting in some narrowing of the airway, but about 50%. The tracheal rings appear to be patent without any significant malacia. After instilling additional lidocaine, the bronchoscope was then navigated to the entire tracheobronchial tree. The patient did have some mucus plugging noted throughout, but no significant erythema of the airways. Again, the bronchomalacia was present bilaterally. No endobronchial lesions or masses noted. The patient did have some acanthosis likely pigmentation from smoking. A microscopic brush was introduced into the left lower lobe area and sent for microbiology. Also bilateral bronchial washings were collected for microbiology and cytology. Using saline wash, all the segments and it was noted that most of them had mucus plugs. Those were subsequently clear. The patient tolerated the procedure well. Vital signs were stable throughout the procedure. She was subsequently taken to the PACU. There she was coughing more. She was given racemic epi for some laryngeal irritation. Otherwise, no complications noted. INTERPRETATION: 1. Evidence of inflammation of the arytenoids at the level of the larynx, likely secondary to either reflux or postnasal drip along with a chronic cough. 2. Evidence of bronchomalacia and also some excessive compression of the trachea due to the excessive contraction of the posterior trachealis muscle. 3. Bilateral washings. 4. Microscopic brush from the left lower lobe. Sebastien Boykin MD MR/MODL / [id number]
== END 2022-03-12 09:45 | disposition home or self-care (01) ==
PROVIDERS: PCP Internal Medicine; Visit Provider Hospitalist
PROC: 0BJ08ZZ Inspection of Tracheobronchial Tree, Via Natural or Artificial Opening Endoscopic (ICD-10-PCS; CPT 31622; principal; 2022-03-12 08:00)
DX: R91.8 Other nonspecific abnormal finding of lung field (principal); J98.09 Other diseases of bronchus, not elsewhere classified; J45.40 Moderate persistent asthma, uncomplicated; R05.3 Chronic cough; F17.210 Nicotine dependence, cigarettes, uncomplicated; E03.9 Hypothyroidism, unspecified; E04.1 Nontoxic single thyroid nodule; E55.9 Vitamin D deficiency, unspecified; Z98.82 Breast implant status
CPT/HCPCS: 31623; 87071; 87116; 87205; 88112; 94640; J0171; J2405; J3010

== ENCOUNTER 2022-03-26 14:13 | Outpatient (REF) | payer OTHER, SELFPAY ==
[2022-03-26 15:24] LABS: Thyroid Stimulating Hormone 4.77 uIU/mL (0.32-4.0)
[2022-03-26 16:10] LABS: Appearance Urine CLEAR; Color Urine YELLOW; Glucose Urine UA NEG (NEG); Leukocyte Esterase Urine NEG (NEG); Nitrite Urine NEG (NEG); Urine Blood TRACE (NEG); Urine Ketones NEG (NEG); Urine Protein NEG (NEG-TRACE)
[2022-03-26 16:19] LABS: Squamous Epithelial Cell Urine 1+ /LPF; WBC Urine 0-2 /HPF (0-4)
[2022-03-26 16:20] LABS: Bacteria Urine TRACE /LPF
== END 2022-03-26 14:14 | disposition home or self-care (01) ==
LOC: HO.LAB 14:13
PROVIDERS: PCP Internal Medicine; Visit Provider Internal Medicine
DX: Z00.00 Encounter for general adult medical examination without abnormal findings (principal); J45.40 Moderate persistent asthma, uncomplicated; R91.8 Other nonspecific abnormal finding of lung field; N39.0 Urinary tract infection, site not specified; F17.210 Nicotine dependence, cigarettes, uncomplicated
CPT/HCPCS: 36415; 81001; 81003; 84443

== ENCOUNTER → 2023-01-11 14:56 | Outpatient (BNVA) | payer OTHER, SELFPAY | PROVIDERS: PCP Internal Medicine; Visit Provider Internal Medicine | DX: Z13.89 Encounter for screening for other disorder (principal) ==

== ENCOUNTER → 2023-04-22 14:26 | Outpatient (BNVA) | payer OTHER, SELFPAY | PROVIDERS: PCP Internal Medicine; Visit Provider Internal Medicine ==

== ENCOUNTER 2023-06-21 15:37 | Outpatient (AMB) | payer OTHER, SELFPAY ==
--- NOTE | 2023-06-21 15:41 | A.OFFVIS_ITS ---
Intake Vital Signs 06/21/23 15:50 Height 5 ft 4 in Weight 147 lb BMI 25.2 BP 110/70 Blood Pressure Location Lt brachial Position Sitting Pulse 70 Pulse Oximetry (%) 97 Intake Visit Reasons: CT Chest Follow Up Allergies No Known Allergies [No Known Allergies*] Allergy (Verified 04/22/23 14:33) HPI HPI Comments History of Present Illness Details The patient is a 53-year-old woman with an active smoker not complaining worsening cough and shortness of breath for the last year. 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 She has developed a worsening cough productive in nature and croupy at times. Moderate to severe. She has not had any significant improvement. Unfortunately she does smoke cigarettes. She understands that she needs to quit. She did have a CT scan done in January of 2020 while she was having symptoms to follow-up with a previous pulmonary nodule. In a did demonstrate evidence of mosaic pattern, bronchitis with bronchiectatic airways in addition to the pulmonary nodules measuring from 2 to 4 mm in size. The patient also has a lot of mucus which she describes as jelly like. We did try to collect when in the office but she was not able to. Therefore, she will take a cup and she will provide 1 in the morning. Will also do additional blood work at this time. 09/10/2020 the patient has a telephone visit. She continued to have respiratory symptoms with chest tightness. She has also had shortness of breath. [id number] severity. Recently she has been exposed to COVID-19 infections and she is being transferred at this time. She was not able to fill the Symbicort for some reason. Therefore she does not have any inhalers at this time. She needs to be on a maintenance inhaler and also have a rescue inhaler. We did review her pulmonary function studies demonstrating small airways disease . We also reviewed her blood work which was all relatively negative. We also reviewed her CT scan of the chest demonstrating multiple pulmonary nodules largest 4 mm in size but in addition to that significant bronchitis and significant was a pattern and bronchiectatic airways. Based on her ongoing symptoms I have her have a repeat CT scan and a couple months. 02/11/2021 the patient is here for pulmonary follow-up visit. Overall she is doing about the same. She is coughing with a barky night cough. Moderate severity. She did start the Advair finally last week due to the fact that was she was not sure if you want to take it due to the side effects. However, she has been tolerating well with the hope that he does relieve some of her symptoms. At this point is too early to tell. In the meantime she does have the barky cough which is likely some component of tracheomalacia. We did talk about considering bronchoscopy to further address the trachea issue. But, will wait for her to get vaccinated 1st. In the meantime she continue using the Advair and will plan to have her start Mucinex DM that she can use for her cough. The patient returned 2 months and will address the question of bronchoscopy at this time. 06/03/2021 the patient is here for pulmonary follow-up visit. Overall she feels a little better. She has not been using her inhalers prescribed. Her cough has improved. Although she feels chest tightness shortness of breath. [id number] severity. Unfortunately, she went back to smoking cigarettes. She is smoking a pack every other day she does have of greater than 30 pack-year history of smoking and she is now over the age 50 therefore she does qualify for the lung cancer screening program. We will refer in order to be screen regular basis. In the meantime she is also dealing with her thyroid. We did look at her last pulmonary function studies from October 2020 demonstrating small airways disease likely secondary to smoking. In addition to that we did review her last CT scan chest from 2019 which demonstrated small pulmonary nodules subcentimeter in size. More recently she did have an echocardiogram which was normal although it did mention a lipomatous hypertrophy of the intra atrial septum. I did briefly speak to Cardiology and felt that there was nothing to do about that. Possibly consider repeating the echocardiogram in a year's time. 12/04/2021 the patient is here for a pulmonary follow-up visit. She continues to have chest tightness and a productive cough. The Advair has not been very effective for her. We did have a coupon for Trelegy inhaler and she is going to try that instead. I did give her scripts with a coupon and she will tried at this time. I am hopeful that is getting be more effective. We also talked about different options for her chronic bronchitis including Daliresp and azithromycin as options. Patient understands that if she continues to smoke she will continue having a productive cough likely has component of respiratory bronchiolitis. The patient does have the nicotine patch. We did talk about other alternatives but they are not as effective as the patch at this time. Patient also had a CT scan of the chest under the lung cancer screening program. Patient has small pulmonary nodules appear to be stable in size. No air trapping which is reassuring. No significant thickening of the airways to suggest bronchitis. For 02/25/2022 the patient is here for a pulmonary follow-up visit. Overall she is doing fair. She continues to have a cough. The cough is very harsh and lik rosendo suggestive of tracheomalacia. She continues on the respiratory therapy. She gets partial resolution of the symptoms. She also complains of a fullness in her throat. She is concerned she could have something abnormal there. I did reassure her that her recent CT scan of the chest evaluates up to the level of the thyroid cartilage And part of her neck. No abnormalities noted. She does have small pulmonary nodules will continue participating in the lung cancer screening program. She is struggling with smoking. She is trying to cut down. She would like to go to a lower dose nicotine patch. In the meantime because of the cough which is persistent not responding to therapy go ahead and plan to perform a bronchoscopy to assess her trachea and see if she has any significant evidence of tracheomalacia and to try to find a cause for her chronic cough. We can also perform the cultures looking for smoldering infections and also assess her respiratory mucosa. 03/26/2022 the patient is here for a pulmonary follow-up visit. Overall she is feeling well. She continues have a cough. After the bronchoscopy now we know that she has significant bronchomalacia in no suggestion of tracheomalacia. The bronchomalacia is likely contributing to her very harsh cough. Also the bronchial washings demonstrated abundant macrophages within the airways suggesting respiratory bronchiolitis from smoking. Explained to the patient that the macrophages obstruct the airways making it difficult to breathe at times. The patient is working on quitting smoking. She is motivated. She does have a patch on. Otherwise her cultures have been negative for any organisms which is reassuring. It was also negative for any malignancy. Still waiting for AFB but does not likely to be positive. The patient continues use the Trelegy. She also has a rescue inhaler that she has not had to use. The patient will be switching jobs working days instead of nights. I do believe this is also can be good for health and also early help her with these tobacco cessation. Will follow-up after her next CT scan as part of the lung cancer screening program. 06/21/2023 the patient is here for pulmonary follow-up visit. The patient overall is doing fairly well. She has still continues to complain about the cough with the cough is productive in nature. She is status post bronchoscopy demonstrating significant bronchomalacia. Unfortunately she is still smoking. She has been having hard time quitting. She has tried the patch without any significant improvement. We did talk about the Nicotrol inhaler and the patient was willing to tried initially but then did not feel like it was going to be helpful based on the fact that she cannot inhale the Nicotrol into her lungs. Therefore, the only real option she has a Chantix. She does suffer from depression and she is on antidepressive agents. Although with her significant bronchomalacia and potential worsening of her chronic bronchitis quitting smoking is very important for her future likely wilkes. Therefore, I did request that she can speak to her psychiatrist and see about getting the okay to start Chantix. If the psychiatrist gives the okay to do so the patient is to be monitor by profession also also family members for any worsening depressive symptoms. I have given her a prescription that she can fill as long as she gets the okay from her psychiatrist. If she does not get the okay from the psychiatrist and she will have to This regard that prescription. Patient is also participating in the lung cancer screening program. Now she is at a different hospital and she did break a CD. I did review the images available. The patient has small subcentimeter pulmonary nodules appear to be stable. She is concerned about an area in the right lower lobe. Again have to download the actual CD to be able to get all the windows and cuts but once I have them available I will let her know my opinion. [facility] Medical History (Updated 06/21/23 @ 23:06 by Sebastien Boykin MD) Asthma Bronchomalacia Cough Hypothyroidism Personal history of nicotine dependence Pulmonary nodules Thyroid nodule Vitamin D deficiency Surgical History History of colonoscopy Hx of breast implant Hx of hysterectomy S/P thyroid biopsy Family History Father CVD (cardiovascular disease) Mental health disorder Mother Arthritis of knee Social History Housing: Condominium Patient Tobacco Use Status: Current everyday Tobacco user Tobacco use type: Cigarette Cigarettes Per Day: 15 Years Smoked: 36 e-Cigarette/Vaping Use: Never Used Second Hand Smoke Exposure: Yes service: No Current occupational status: employed Cognitive needs: No Hearing needs: No Vision needs: Yes Review of Systems Const Denies night sweats ENT Denies change in voice, Denies lip swelling, Denies mouth pain, Reports nasal congestion, Reports nasal discharge and Denies tongue swelling Card Denies chest pain and Denies dyspnea on exertion Resp Reports chest congestion, Reports cough and Denies dyspnea on exertion GI Denies abdominal pain Musc Denies no additional complaints Neuro Denies Neuro-related abnormal movements Psych Denies no additional complaints Terrence/Lymph Denies easy bleeding and Denies lymphadenopathy Aller/Immun Denies lip swelling and Denies tongue swelling Physical Exam Vital Signs: Last Vital Signs Pulse 70 06/21/23 15:50 BP 110/70 06/21/23 15:50 Pulse Ox 97 06/21/23 15:50 BMI result Body Mass Index 25.2 Const General: alert Neck Neck: Yes normal visual inspection, Yes full ROM and Yes no lymphadenopathy Chest Chest palpation & inspection: normal inspection of the chest Resp Effort & Inspection: normal respiratory effort Auscultation: diminished lung sounds Cardio Rate: regular rate Rhythm: regular rhythm Heart sounds: S1 normal heart sound present and S2 normal heart sound present GI Palpation (GI): Soft to palpation and nontender Auscultation: normal bowel sounds Skin General skin exam: rashes and/or lesions noted Assessment & Plan Assessment & Plan (1) Pulmonary nodules: Comment: (stable on 01/[address]) Code(s): R91.8 - Other nonspecific abnormal finding of lung field (2) Asthma: Code(s): J45.909 - Unspecified asthma, uncomplicated Qualifiers: Asthma complication type: uncomplicated Asthma persistence: persistent Asthma severity: moderate Qualified Code(s): J45.40 - Moderate persistent asthma, uncomplicated (3) Cough: Comment: bronchomalacia Code(s): R05 - Cough (4) Bronchomalacia: Code(s): J98.09 - Other diseases of bronchus, not elsewhere classified Plan Trelegy 100mcg CHRISTIN as needed LDCT program start chantix if ok by her psychiatrist Consider repeating ECHO to follow lipomatous hypertrophy F/U 6 months Medications: New varenicline (Chantix Starting Month Box) PO PER PKG DIR 42 ea 0RF Refilled albuterol sulfate 90 mcg/actuation 2 inhalations inhalation Q6H 30 days PRN 18 grams 12RF shortness of breath or wheezing J44.9 - Chronic obstructive pulmonary disease, unspecified Quality Reporting (2019) Adult ([facility] 138/01/06/69) Smoking risk assessment performed?: Yes Patient Tobacco Use Status: Current everyday Tobacco user Coding Level of Care Code Est Pt Level 4 (64842) Diagnoses Pulmonary nodules R91.8 Asthma J45.40 Asthma complication type: uncomplicated Asthma persistence: persistent Asthma severity: moderate Cough R05 Bronchomalacia J98.09 Time Spent (min) 20
[2023-06-21 15:50] VITALS: BP 110/70; PULSE 70; O2SAT 97; BMI 25.2
== END 2023-06-21 16:26 | disposition home or self-care (01) ==
PROVIDERS: PCP Internal Medicine; Visit Provider Hospitalist
DX: R91.8 Other nonspecific abnormal finding of lung field (principal); J45.40 Moderate persistent asthma, uncomplicated; R05.9 Cough, unspecified; J98.09 Other diseases of bronchus, not elsewhere classified
CPT/HCPCS: 99214

== ENCOUNTER → 2023-06-21 15:37 | Outpatient (BNVA) | payer OTHER, SELFPAY | PROVIDERS: Visit Provider Hospitalist ==

== ENCOUNTER 2023-08-03 11:19 | Outpatient (AMB) | payer OTHER, SELFPAY ==
--- NOTE | 2023-08-03 11:21 | MHC.OFFVIS ---
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 The patient last saw Dr. Cohen on 04/22/2023 She reports a longstanding history of Hypothyroidism, first diagnosed in [address] Marinelli an [employer] practicing at [facility] (now [facility] 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 She has trialed different regimens of thyroid hormone, including Levothyroxine, then levothyroxine with cytomel, [place] thyroid and Nature thyroid. She reports she had worsening of symptoms on all of these with worsening fatigue. She stopped treatment due to this and was off treatment for approximately 2 years, from 2016 to 2018. She then presented to see me in mid 2018. Labs revealed hypothyroidism and TPO and TG antibodies positive, indicating Hari's disease. She was started on Synthroid (brand name) 50 mcg PO daily, but reported symptoms of jitters and palpitations, so she stopped this of her own accord. After some persuasion, she began taking the 50 mcg daily again, and does report the symptoms of jitters and palpitations resolved spontaneously. She is now on a dose of synthroid brand name 50 mcg PO 5 days a week and 100 mcg PO 2 days per week. TSH is at goal. She reports feeling tired. She also had a thyroid US which revealed a gland consistent with a jamison-gland, and a 1.2 cm R mid pole thyroid nodule. She underwent FNA biopsy of this nodule 09/07/19 with Benign ([place] Category II) Cytology. She was noted to have cervical lymphadenopathy and underwent FNA biopsy of a L level 2 cervical lymph node measuring 2.9 cm 08/21/2020, with benign cytology. Repeat thyroid US 05/22/2022 reveals a 1.1 cm hyperechoic R sided nodule. Unchanged from prior. Has no specific complaints today. No longer has menses due to hysterectomy. Does not take biotin. Thyroid US: 06/30/19 Right Thyroid Lobe: 5.1 x 1.8 x 1.9 cm, volume 9.1 mL. Parenchyma: The gland echotexture is heterogeneous. Thyroid vascularity is increased. Left Thyroid Lobe: 5.0 x 1.7 x 1.3 cm, volume 6.2 mL. Parenchyma: The gland echotexture is heterogeneous. Thyroid vascularity is normal. Isthmus: 0.4 cm in maximum AP dimension. RIGHT THYROID LOBE: There is 1 nodule seen. 1. Location: Midpole. Size: 1.2 x 0.9 x 0.9 cm. Nodule characteristics: Hyperechoic, smoothly marginated with intranodular flow. ISTHMUS: No nodules. LEFT THYROID LOBE: No nodules. NODES: There is a 1 cm short-axis lymph node right neck. Labs: 12/15/2022 TSH 3.81 Currently on Synthroid 75 mcg q.d. C/o headache , body aches PFSH Medical History (Updated 06/21/23 @ 23:06 by Sebastien Boykin MD) Bronchomalacia Personal history of nicotine dependence Vitamin D deficiency Thyroid nodule Hypothyroidism Cough Asthma Pulmonary nodules Surgical History S/P thyroid biopsy History of colonoscopy Hx of breast implant Hx of hysterectomy Family History Father CVD (cardiovascular disease) Mental health disorder Mother Arthritis of knee Social History Housing: Condominium Patient Tobacco Use Status: Current everyday Tobacco user Tobacco use type: Cigarette Cigarettes Per Day: 15 Years Smoked: 36 e-Cigarette/Vaping Use: Never Used Second Hand Smoke Exposure: Yes service: No Current occupational status: employed Cognitive needs: No Hearing needs: No Vision needs: Yes Physical Exam Vital Signs: Last Vital Signs Pulse 74 08/03/23 11:22 BP 122/82 08/03/23 11:22 BMI result Body Mass Index 25.2 Const Other: Thyroid gland is top-normal in size weighs about 20 g . There are no thyroid nodules palpated Assessment & Plan Assessment & Plan (1) Hypothyroidism: Code(s): E03.9 - Hypothyroidism, unspecified Plan: This is a 53-year-old white female with a history of hypothyroidism currently being treated with 75 mcg Synthroid. She appears to be clinically euthyroid with high normal TSH. Plan is to increase the Synthroid to 88 mcg and recheck TSH and free T4 in 6 weeks time. Further adjustment of the Synthroid will take place at that point if needed (2) Thyroid nodule: Comment: (Right thyroid nodule - benign FNA 2019) Code(s): E04.1 - Nontoxic single thyroid nodule Plan: Recent ultrasound shows stability in the size of the nodule. Will continue to observe Orders: Orders Thyroid Stimulating Hormone 6 Weeks E03.9 - Hypothyroidism, unspecified Free T4 (Free Thyroxine) 6 Weeks E03.9 - Hypothyroidism, unspecified Medications: New Synthroid (levothyroxine) 88 mcg PO DAILY 30 tabs 5RF NS Discontinued Synthroid (levothyroxine) JACEK, no substitutions. Discontinued Reason: Doctor's Order 75 mcg PO DAILY 30 days 30 tabs 3RF NS Quality Reporting (2019) Adult ([facility] [address]/[birth year]) Smoking risk assessment performed?: Yes Patient Tobacco Use Status: Current everyday Tobacco user Coding Level of Care Code Est Pt Level 3 (23942) Diagnoses Hypothyroidism E03.9 Thyroid nodule E04.1
[2023-08-03 11:22] VITALS: BP 122/82; PULSE 74; BMI 25.2
== END 2023-08-03 12:08 | disposition home or self-care (01) ==
PROVIDERS: PCP Internal Medicine; Visit Provider Internal Medicine Endocrinology, Diabetes & Metabolism
DX: E03.9 Hypothyroidism, unspecified (principal); E04.1 Nontoxic single thyroid nodule
CPT/HCPCS: 99213

== ENCOUNTER → 2023-08-03 11:19 | Outpatient (BNVA) | payer OTHER, SELFPAY | PROVIDERS: PCP Internal Medicine; Visit Provider Internal Medicine Endocrinology, Diabetes & Metabolism ==

== ENCOUNTER 2023-08-19 14:13 | Outpatient (AMB) | payer OTHER, SELFPAY ==
[2023-08-19 14:16] VITALS: BP 126/70; PULSE 70; O2SAT 98; BMI 25.1
--- NOTE | 2023-08-19 14:16 | MHC.PC.OV ---
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 Accompanied by: Self / Same As Patient Allergies No Known Allergies [No Known Allergies*] Allergy (Verified 08/19/23 14:16) Medication List - Last Reconciled 08/20/23 by Mansoor Pisano MD albuterol sulfate 90 mcg/actuation 2 inhalations inhalation Q6H PRN 30 days cholecalciferol (vitamin D3) 50 mcg PO DAILY 30 days clonazepam 1 mg PO TID PRN duloxetine 30 mg PO DAILY ibuprofen 800 mg PO Q8H lamotrigine 200 mg PO DAILY meloxicam 15 mg PO DAILY nicotine 1 patch transdermal DAILY 28 days ondansetron HCl 4 mg PO DAILY PRN Synthroid (levothyroxine) 88 mcg PO DAILY NS tizanidine 4 mg PO TID PRN varenicline (Chantix Starting Month Box) PO PER PKG DIR vortioxetine (Trintellix) 10 mg PO DAILY Tobacco use date assessed: 04/09/23 Dental Screening Dental Screen Date: 08/19/23 Did you have a dental visit in the last 12 months?: Yes Did you have a dental problem in the last 6 months where you did not have access to dental care?: No Was dental information given to patient?: Patient has dentist HPI Ongoing headache-nausea HPI Details suffering more frequent headaches; under stress PFSH Medical History Bronchomalacia Personal history of nicotine dependence Vitamin D deficiency Thyroid nodule Hypothyroidism Cough Asthma Pulmonary nodules Surgical History S/P thyroid biopsy History of colonoscopy Hx of breast implant Hx of hysterectomy Family History Father CVD (cardiovascular disease) Mental health disorder Mother Arthritis of knee Social History Housing: Condominium Patient Tobacco Use Status: Current everyday Tobacco user Tobacco use type: Cigarette Cigarettes Per Day: 15 Years Smoked: 36 Packs per year/per ci.00 e-Cigarette/Vaping Use: Never Used Second Hand Smoke Exposure: Yes service: No Current occupational status: employed Cognitive needs: No Hearing needs: No Vision needs: Yes Questionnaire PHQ-9 Over the last 2 weeks, how often have you been bothered by any of the following problems? 1. Little interest or pleasure in doing things: not at all 2. Feeling down, depressed, or hopeless: not at all 3. Trouble falling or staying asleep, or sleeping too much: not at all 4. Feeling tired or having little energy: not at all 5. Poor appetite or overeating: not at all 6. Feeling bad about yourself - or that you are a failure or have let yourself or your family down: not at all 7. Trouble concentrating on things, such as reading the newspaper or watching television: not at all 8. Moving or speaking so slowly that other people could have noticed. Or the opposite - being so fidgety or restless that you have been moving around a lot more than usual: not at all 9. Thoughts that you would be better off or of hurting yourself in some way: not at all Total score: 0 Depression Screening Interpretation: Negative Depression Screening Done: Yes Source: Developed by Drs. Camilo Chairez, Usha Betancourt, Bry Barry and colleagues, with an educational miguelito from [employer]. Thrive Questionnaire Date Thrive assessed: 04/09/23 AUDIT C Alcohol Use Questionnaire (AUDIT-C) 1. How often do you have a drink containing alcohol?: Never Total Score: 0 FRANCO-7 AMB Questionnaire FRANCO-7 Date FRANCO - 7 assessed: 04/09/23 Source: Developed by Drs. Camilo Chairez, Usha Betancourt, Bry Barry and colleagues, with an educational miguelito from [employer]. Review of Systems Const Denies chills, Reports headache(s) and Denies weight loss ENT Reports headache(s) Card Denies chest pain, Denies syncope, Denies irregular heart rhythm and Denies dyspnea Resp Denies chest congestion, Denies cough and Denies dyspnea GI Denies abdominal pain, Denies change in stool character, Denies nausea and Denies vomiting Musc Denies deformity and Denies joint swelling Neuro Denies syncope and Reports headache(s) Physical exam (Primary Care) Vital Signs: Last Vital Signs Pulse 70 08/19/23 14:16 BP 126/70 08/19/23 14:16 Pulse Ox 98 08/19/23 14:16 Oxygen Delivery Method Room Air 08/19/23 14:16 BMI result Body Mass Index 25.1 Tobacco/Smoking Status: Tobacco use Status Tobacco use date assessed 04/09/23 08/19/23 14:19 Patient Tobacco Use Status Current everyday Tobacco 08/19/23 14:19 Tobacco use type Cigarette 08/19/23 14:19 e-Cigarette/Vaping Use Never Used 08/19/23 14:19 PHQ-9: PHQ-9 Score PHQ-9: Total score 0 08/19/23 14:30 Depression Screening Interpretation: Negative Thrive Assessment: Date of Thrive Assessment Date Thrive assessed 04/09/23 08/19/23 14:19 Const General: cooperative, comfortable, no acute distress and alert Neck Neck: Yes no lymphadenopathy Thyroid: Thyroid normal Resp Effort & Inspection: normal respiratory effort Auscultation: clear to auscultation bilaterally Percussion: percussion normal Cardio Jugular venous distension: no JVD Palpation: normal PMI Rate: regular rate Rhythm: regular rhythm Heart sounds: S1 normal heart sound present and S2 normal heart sound present GI Inspection: Yes normal to inspection Palpation (GI): No hepatosplenomegaly present Skin General skin exam: no rashes or lesions noted Extrem General: Yes no clubbing, cyanosis or edema Assessment and Plan Assessment & Plan (1) Chronic headaches: Code(s): R51.9 - Headache, unspecified; G89.29 - Other chronic pain Plan: due for labs; rx sent Orders: Orders Complete Blood Count Auto Diff 08/19/23 D64.9 - Anemia, unspecified Thyroid Stimulating Hormone 08/19/23 E03.9 - Hypothyroidism, unspecified Lipid Panel 08/19/23 E78.5 - Hyperlipidemia, unspecified Comprehensive [place]. Panel Fast 08/19/23 N28.9 - Disorder of kidney and ureter, unspecified Medications: New tizanidine 4 mg PO TID PRN 60 tabs 3RF muscle spasticity meloxicam 15 mg PO DAILY 30 tabs 2RF Coding Level of Care Code Est Pt Level 3 (09991) Diagnoses Chronic headaches R51.9; G89.29
== END 2023-08-19 14:35 | disposition home or self-care (01) ==
PROVIDERS: PCP Internal Medicine; Visit Provider Internal Medicine
DX: R51.9 Headache, unspecified (principal); G89.29 Other chronic pain
CPT/HCPCS: 99213

== ENCOUNTER 2023-10-06 09:41 | Outpatient (AMB) | payer OTHER, SELFPAY ==
[2023-10-06 09:44] VITALS: BP 124/76; PULSE 71; O2SAT 97; BMI 25.4
--- NOTE | 2023-10-06 09:44 | MHC.PC.OV ---
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: Not Required per policy Accompanied by: Self / Same As Patient Allergies No Known Allergies [No Known Allergies*] Allergy (Verified 10/06/23 09:47) Medication List - Last Reconciled 10/06/23 by Mansoor Pisano MD albuterol sulfate 90 mcg/actuation 2 inhalations inhalation Q6H PRN 30 days cholecalciferol (vitamin D3) 50 mcg PO DAILY 30 days clonazepam 1 mg PO TID PRN duloxetine 30 mg PO DAILY ibuprofen 800 mg PO Q8H lamotrigine 200 mg PO DAILY nicotine 1 patch transdermal DAILY 28 days ondansetron HCl 4 mg PO DAILY PRN Synthroid (levothyroxine) 88 mcg PO DAILY NS tizanidine 4 mg PO TID PRN vortioxetine (Trintellix) 10 mg PO DAILY Tobacco use date assessed: 04/09/23 Dental Screening Dental Screen Date: 10/06/23 Did you have a dental visit in the last 12 months?: Yes Did you have a dental problem in the last 6 months where you did not have access to dental care?: No Was dental information given to patient?: Patient has dentist HPI PE HPI Details asthma anxiety and hypothyroidism PFSH Medical History Bronchomalacia Personal history of nicotine dependence Vitamin D deficiency Thyroid nodule Hypothyroidism Cough Asthma Pulmonary nodules Surgical History S/P thyroid biopsy History of colonoscopy Hx of breast implant Hx of hysterectomy Family History Father CVD (cardiovascular disease) Mental health disorder Mother Arthritis of knee Housing: Condominium Patient Tobacco Use Status: Current everyday Tobacco user Tobacco use type: Cigarette Cigarettes Per Day: 15 Years Smoked: 36 e-Cigarette/Vaping Use: Never Used Second Hand Smoke Exposure: Yes service: No Current occupational status: employed Cognitive needs: No Hearing needs: No Vision needs: Yes Questionnaire PHQ-9 Over the last 2 weeks, how often have you been bothered by any of the following problems? 1. Little interest or pleasure in doing things: not at all 2. Feeling down, depressed, or hopeless: not at all 3. Trouble falling or staying asleep, or sleeping too much: not at all 4. Feeling tired or having little energy: not at all 5. Poor appetite or overeating: not at all 6. Feeling bad about yourself - or that you are a failure or have let yourself or your family down: not at all 7. Trouble concentrating on things, such as reading the newspaper or watching television: not at all 8. Moving or speaking so slowly that other people could have noticed. Or the opposite - being so fidgety or restless that you have been moving around a lot more than usual: not at all 9. Thoughts that you would be better off or of hurting yourself in some way: not at all Total score: 0 Depression Screening Interpretation: Negative Depression Screening Done: Yes 27154 - PHQ-9 Billing: Yes Source: Developed by Drs. Camilo Chairez, Usha Betancourt, Bry Barry and colleagues, with an educational miguelito from [employer]. Thrive Questionnaire Date Thrive assessed: 04/09/23 FRANCO-7 AMB Questionnaire FRANCO-7 Date FRANCO - 7 assessed: 04/09/23 Source: Developed by Drs. Camilo Chairez, Bry Hoskins and colleagues, with an educational miguelito from [employer]. Review of Systems Const Denies chills, Denies fatigue, Denies headache(s) and Denies weight loss Eyes Denies change in vision, Denies diplopia and Denies eye pain ENT Denies vertigo, Denies dizziness, Denies headache(s) and Denies nasal discharge Card Denies chest pain, Denies rapid heart rate and Denies dyspnea on exertion Resp Denies chest congestion, Denies cough, Denies pain with cough and Denies dyspnea on exertion GI Denies abdominal pain, Denies hematochezia and Denies change in bowel habits Musc Denies myalgias, Denies arthralgias and Denies joint swelling Skin/Breast Denies lesions and Denies unusual bruising Neuro Denies vertigo, Denies dizziness, Denies headache(s) and Denies focal weakness Endo Denies fatigue Physical exam (Primary Care) Vital Signs: Last Vital Signs Pulse 71 10/06/23 09:44 BP 124/76 10/06/23 09:44 Pulse Ox 97 10/06/23 09:44 Oxygen Delivery Method Room Air 10/06/23 09:44 BMI result Body Mass Index 25.4 Tobacco/Smoking Status: Tobacco use Status Tobacco use date assessed 04/09/23 10/06/23 09:44 Patient Tobacco Use Status Current everyday Tobacco 10/06/23 09:44 Tobacco use type Cigarette 10/06/23 09:44 e-Cigarette/Vaping Use Never Used 10/06/23 09:44 PHQ-9: PHQ-9 Score PHQ-9: Total score 0 10/06/23 09:54 Depression Screening Interpretation: Negative Thrive Assessment: Date of Thrive Assessment Date Thrive assessed 04/09/23 10/06/23 09:44 Const General: cooperative, healthy appearing and no acute distress Orientation/consciousness: oriented to person, oriented to place and oriented to time HENMT Head: Yes normal to inspection, Yes normocephalic and Yes atraumatic Mouth: Normal oral and palatal mucosa present and tongue normal Throat: Yes posterior oropharynx normal and Yes uvula midline Eyes General: appearance normal, both eyes and all related structures Neck Neck: Yes normal visual inspection, Yes full ROM and Yes no lymphadenopathy Thyroid: Thyroid normal Carotids: normal carotid upstroke Chest Chest palpation & inspection: normal inspection of the chest Resp Effort & Inspection: normal respiratory effort and able to speak in complete sentences Auscultation: clear to auscultation bilaterally Cardio Jugular venous distension: no JVD Palpation: normal PMI Rate: regular rate Rhythm: regular rhythm Heart sounds: S1 normal heart sound present and S2 normal heart sound present GI Inspection: Yes normal to inspection Palpation (GI): Soft to palpation and No hepatosplenomegaly present Auscultation: normal bowel sounds General: Yes no CVA tenderness Back/Spine/Pelvis Back: no CVA tenderness Skin General skin exam: no rashes or lesions noted Neuro General: oriented to person, oriented to place and oriented to time Extrem General: Yes normal to inspection and Yes full ROM Assessment and Plan Assessment & Plan (1) Physical exam: Code(s): Z00.00 - Encounter for general adult medical examination without abnormal findings Plan: stable ;same rx (2) Asthma: Code(s): J45.909 - Unspecified asthma, uncomplicated Qualifiers: Asthma severity: moderate Asthma persistence: persistent Asthma complication type: uncomplicated Qualified Code(s): J45.40 - Moderate persistent asthma, uncomplicated Plan: stable; same rx (3) Hypothyroidism: Code(s): E03.9 - Hypothyroidism, unspecified Plan: stable Coding Level of Care Code Est Pt Prev Care 40-64y(87434) Diagnoses Physical exam Z00.00 Moderate persistent asthma without complication J45.40 Asthma severity: moderate Asthma persistence: persistent Asthma complication type: uncomplicated Hypothyroidism E03.9
== END 2023-10-06 10:18 | disposition home or self-care (01) ==
PROVIDERS: Visit Provider Internal Medicine
DX: Z00.00 Encounter for general adult medical examination without abnormal findings (principal); J45.40 Moderate persistent asthma, uncomplicated; E03.9 Hypothyroidism, unspecified
CPT/HCPCS: 99396

== ENCOUNTER 2023-12-21 15:30 | Outpatient (AMB) | payer OTHER, SELFPAY ==
--- NOTE | 2023-12-21 15:41 | A.OFFVIS_ITS ---
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 She has developed a worsening cough productive in nature and croupy at times. Moderate to severe. She has not had any significant improvement. Unfortunately she does smoke cigarettes. She understands that she needs to quit. She did have a CT scan done in January of 2020 while she was having symptoms to follow-up with a previous pulmonary nodule. In a did demonstrate evidence of mosaic pattern, bronchitis with bronchiectatic airways in addition to the pulmonary nodules measuring from 2 to 4 mm in size. The patient also has a lot of mucus which she describes as jelly like. We did try to collect when in the office but she was not able to. Therefore, she will take a cup and she will pr ovide 1 in the morning. Will also do additional blood work at this time. 09/10/2020 the patient has a telephone v isit. She continued to have respiratory symptoms with chest tightness. She has also had shortness of breath. [id number]-[id number] severity. Recently she has been exposed to COVID-19 infections and she is being transferred at this time. She was not able to fill the Symbicort for some reason. Therefore she does not have any inhalers at this time. She needs to be on a maintenance inhaler and also have a rescue inhaler. We did review her pulmonary function studies demonstrating small airways disease. We also reviewed her blood work which was all relatively negative. We also reviewed her CT scan of the chest demonstrating multiple pulmonary nodules largest 4 mm in size but in addition to that significant bronchitis and significant was a pattern and bronchiectatic airways. Based on her ongoing symptoms I have her have a repeat CT scan and a couple months. 02/11/2021 the patient is here for pullazaro martin follow-up visit. Overall she is doing about the same. She is coughing with a barky night cough. Moderate severity. She did start the Advair finally last week due to the fact that was she was not sure if you want to take it due to the side effects. However, she has been tolerating well with the hope that he does relieve some of her symptoms. At this point is too early to tell. In the meantime she does have the barky cough which is likely some component of tracheomalacia. We did talk about considering bronchoscopy to further address the trachea issue. But, will wait for her to get vaccinated 1st. In the meantime she continue using the Advair and will plan to have her start Mucinex DM that she can use for her cough. The patient returned 2 months and will address the question of bronchoscopy at this time. 06/03/2021 the patient is [facility]. Overall she feels a little better. She has not been using her inhalers prescribed. Her cough has improved. Although she feels chest tightness shortness of breath. Dsdw-ab-cxtmokdr severity. Unfortunately, she went back to smoking cigarettes. She is smoking a pack every other day she does have of greater than 30 pack-year history of smoking and she is now over the age 50 therefore she does qualify for the lung cancer screening program. We will refer in order to be screen regular basis. In the meantime she is also dealing with her thyroid. We did look at her last pulmonary function studies from October 2020 demonstrating small airways disease likely secondary to smoking. In addition to that we did review her last CT scan chest from 2019 which demonstrated small pulmonary nodules subcentimeter in size. More recently she did have an echocardiogram which was normal although it did mention a lipomatous hypertrophy of the intra atrial septum. I did briefly speak to Cardiology and felt that there was nothing to do about that. Possibly consider repeating the echocardiogram in a year's time. 12/04/2021 the patient is here for a pul [facility] follow-up visit. She continues to have chest tightness and a productive cough. The Advair has not been very effective for her. We did have a coupon for Trelegy inhaler and she is going to try that instead. I did give her scripts with a coupon and she will tried at this time. I am hopeful that is getting be more effective. We also talked about different options for her chronic bronchitis including Daliresp and azithromycin as options. Patient understands that if she continues to smoke she will continue having a productive cough likely has component of respiratory bronchiolitis. The patient does have the nicotine patch. We did talk about other alternatives but they are not as effective as the patch at this time. Patient also had a CT scan of the chest under the lung cancer screening program. Patient has small pulmonary nodules appear to be stable in size. No air trapping which is reassuring. No significant thickening of the airways to suggest bronchitis. For 02/25/2022 the patient is here for a pulmonary follow-up visit. Overall she is doing fair. She continues to have a cough. The cough is very harsh and likely suggestive of tracheomalacia. She continues on the respiratory therapy. She gets partial resolution of the symptoms. She also complains of a fullness in her throat. She is concerned she could have something abnormal there. I did reassure her that her recent CT scan of the chest evaluates up to the level of the thyroid cartilage And part of her neck. No abnormalities noted. She does have small pulmonary nodules will continue participating in the lung cancer screening program. She is struggling with smoking. She is trying to cut down. She would like to go to a lower dose nicotine patch. In the meantime because of the cough which is persistent not responding to therapy go ahead and plan to perform a bronchoscopy to assess her trachea and see if she has any significant evidence of tracheomalacia and to try to find a cause for her chronic cough. We can also perform the cultures looking for smoldering infections and also assess her respiratory mucosa. 03/26/2022 the patient is here for a pulmonary follow-up visit. Overall she is feeling well. She continues have a cough. After the bronchoscopy now we know that she has significant bronchomalacia in no suggestion of tracheomalacia. The bronchomalacia is likely contributing to her very harsh cough. Also the bronchial washings demonstrated abundant macrophages within the airways suggesting respiratory bronchiolitis from smoking. Explained to the patient that the macrophages obstruct the airways making it difficult to breathe at times. The patient is working on quitting smoking. She is motivated. She does have a patch on. Otherwise her cultures have been negative for any organisms which is reassuring. It was also negative for any malignancy. Still waiting for AFB but does not likely to be positive. The patient continues use the Trelegy. She also has a rescue inhaler that she has not had to use. The patient will be switching jobs working days instead of nights. I do believe this is also can be good for health and also early help her with these tobacco cessation. Will follow-up after her next CT scan as part of the lung cancer screening program. 06/21/2023 the patient is here for pulmonary follow-up visit. The patient overall is doing fairly well. She has still continues to complain about the cough with the cough is productive in nature. She is status post bronchoscopy demonstrating significant bronchomalacia. Unfortunately she is still smoking. She has been having hard time quitting. She has tried the patch without any significant improvement. We did talk about the Nicotrol inhaler and the patient was willing to tried initially but then did not feel like it was going to be helpful based on the fact that she cannot inhale the Nicotrol into her lungs. Therefore, the only real option she has a Chantix. She does suffer from depression and she is on antidepressive agents. Although with her significant bronchomalacia and potential worsening of her chronic bronchitis quitting smoking is very important for her future likely wilkes. Therefore, I did request that she can speak to her psychiatrist and see about getting the okay to start Chantix. If the psychiatrist gives the okay to do so the patient is to be monitor by profession also also family members for any worsening depressive symptoms. I have given her a prescription that she can fill as long as she gets the okay from her psychiatrist. If she does not get the okay from the psychiatrist and she will have to This regard that prescription. Patient is also participating in the lung cancer screening program. Now she is at a different hospital and she did break a CD. I did review the images available. The patient has small subcentimeter pulmonary nodules appear to be stable. She is concerned about an area in the right lower lobe. Again have to download the actual CD to be able to get all the windows and cuts but once I have them available I will let her know my opinion. 12/21/2023 the patient is here for a pulmonary follow-up visit. The patient still complaining of significant dyspnea on exertion. She also complains of chest pressure sensation specially with exertion. She is concerned she is going to have underlying heart disease specially because of her smoking history and family history. Therefore the patient does not participate in any kind of exercise activity. Explained to her the importance specially with her underlying respiratory issues that she should be participating. Therefore, I will request that she undergo his stress test. Will request a stress echocardiogram at her place of work. In addition to that the patient did have a CT scan of the chest back in April of 2023 as part of the lung cancer screening program. She did bring a CD and I did ventilate the images. Appears that she does have a right lower lobe density that she did not have before. Therefore, based on her ongoing shortness of breath and worsening cough and the abnormal findings on that CT scan from July will go ahead and request a repeat CT scan at this time. Unfortunately, the patient continues to smoke cigarettes. She gets very anxious when she consider stopping smoking. She still struggling to quit. she will continue to try to cut down. In the meantime will await the results of her stress echo and also CT scan in will follow-up after that. If the patient has any worsening symptoms prior to that she will call the office. ON LICENSE OF [facility] Medical History Bronchomalacia Personal history of nicotine dependence Vitamin D deficiency Thyroid nodule Hypothyroidism Cough Asthma Pulmonary nodules Surgical History S/P thyroid biopsy History of colonoscopy Hx of breast implant Hx of hysterectomy Family History Father CVD (cardiovascular disease) Mental health disorder Mother Arthritis of knee Social History Housing: Condominium Patient Tobacco Use Status: Current everyday Tobacco user Tobacco use type: Cigarette Cigarettes Per Day: 15 Years Smoked: 36 e-Cigarette/Vaping Use: Never Used Second Hand Smoke Exposure: Yes service: No Current occupational status: employed Cognitive needs: No Hearing needs: No Vision needs: Yes Review of Systems Const Denies night sweats ENT Denies change in voice, Denies lip swelling, Denies mouth pain, Reports nasal congestion, Reports nasal discharge and Denies tongue swelling Card Reports chest pain and Reports dyspnea on exertion Resp Reports chest congestion, Reports cough and Reports dyspnea on exertion GI Denies abdominal pain Musc Denies no additional complaints Neuro Denies Neuro-related abnormal movements Psych Denies no additional complaints Terrence/Lymph Denies easy bleeding and Denies lymphadenopathy Aller/Immun Denies lip swelling and Denies tongue swelling Physical Exam Vital Signs: Last Vital Signs Pulse 76 12/21/23 15:45 Pulse Ox 96 12/21/23 15:45 Oxygen Delivery Method Room Air 12/21/23 15:45 BMI result Body Mass Index 25.2 Const General: alert Neck Neck: Yes normal visual inspection, Yes full ROM and Yes no lymphadenopathy Chest Chest palpation & inspection: normal inspection of the chest Resp Effort & Inspection: normal respiratory effort Auscultation: diminished lung sounds Cardio Rate: regular rate Rhythm: regular rhythm Heart sounds: S1 normal heart sound present and S2 normal heart sound present GI Palpation (GI): Soft to palpation and nontender Auscultation: normal bowel sounds Skin General skin exam: rashes and/or lesions noted Assessment & Plan Assessment & Plan (1) Pulmonary nodules: Comment: The patient did have a CT scan done April 2023 at [facility]. She did bring a CD and I was able to visualize the images. Appears to have a new right lower lobe density that I documented. Therefore, based on ongoing symptoms will request a repeat CT scan now Code(s): R91.8 - Other nonspecific abnormal finding of lung field (2) Asthma: Code(s): J45.909 - Unspecified asthma, uncomplicated Qualifiers: Asthma severity: moderate Asthma persistence: persistent Asthma complication type: uncomplicated Qualified Code(s): J45.40 - Moderate persistent asthma, uncomplicated (3) Cough: Comment: bronchomalacia Code(s): R05 - Cough Qualifiers: Cough type: chronic Qualified Code(s): R05.3 - Chronic cough (4) Bronchomalacia: Code(s): J98.09 - Other diseases of bronchus, not elsewhere classified (5) Chest pain: Code(s): R07.9 - Chest pain, unspecified Qualifiers: Chest pain type: other chest pain Qualified Code(s): R07.89 - Other chest pain Plan Trelegy 100mcg CHRISTIN as needed repeat CT scan of the chest now to further address the right lower lobe new density stress echo to assess for any evidence of any cardiac related disease. She also has a lipomatous hypertrophy on the septum that she be further evaluated as well F/U 6 months Orders: Orders CA echo transthoracic complete Today I27.20 - Pulmonary hypertension, unspecified, R07.89 - Other chest pain CT chest wo IV con Today R91.8 - Other nonspecific abnormal finding of lung field Quality Reporting (2019) Adult ([facility] 13801/06/69) Smoking risk assessment performed?: Yes Patient Tobacco Use Status: Current everyday Tobacco user Coding Level of Care Code Est Pt Level 4 (88354) Diagnoses Pulmonary nodules R91.8 Moderate persistent asthma without complication J45.40 Asthma severity: moderate Asthma persistence: persistent Asthma complication type: uncomplicated Chronic cough R05.3 Cough type: chronic Bronchomalacia J98.09 Other chest pain R07.89 Chest pain type: other chest pain Time Spent (min) 20
[2023-12-21 15:45] VITALS: PULSE 76; O2SAT 96; BMI 25.2
== END 2023-12-21 16:12 | disposition home or self-care (01) ==
PROVIDERS: PCP Internal Medicine; Visit Provider Hospitalist
DX: R91.8 Other nonspecific abnormal finding of lung field (principal); J45.40 Moderate persistent asthma, uncomplicated; R05.3 Chronic cough; J98.09 Other diseases of bronchus, not elsewhere classified; R07.89 Other chest pain
CPT/HCPCS: 99214

== ENCOUNTER → 2023-12-21 15:30 | Outpatient (BNVA) | payer OTHER, SELFPAY | PROVIDERS: PCP Internal Medicine; Visit Provider Hospitalist | DX: J44.9 Chronic obstructive pulmonary disease, unspecified (principal) ==

== ENCOUNTER 2023-12-22 08:19 | Outpatient (AMB) | payer OTHER, SELFPAY ==
[2023-12-22 08:32] VITALS: BP 122/82; PULSE 85; O2SAT 96; BMI 25.2
--- NOTE | 2023-12-22 08:32 | A.OFFPC_ITS ---
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 per policy Accompanied by: Self / Same As Patient Allergies No Known Allergies [No Known Allergies*] Allergy (Verified 12/22/23 08:36) Medication List - Last Reconciled 12/22/23 by Mansoor Pisano MD albuterol sulfate 90 mcg/actuation 2 inhalations inhalation Q6H PRN 30 days cholecalciferol (vitamin D3) 50 mcg PO DAILY 30 days clonazepam 1 mg PO TID PRN duloxetine 30 mg PO DAILY ibuprofen 800 mg PO Q8H PRN lamotrigine 200 mg PO DAILY nicotine 1 patch transdermal DAILY 28 days ondansetron HCl 4 mg PO DAILY PRN Synthroid (levothyroxine) 88 mcg PO DAILY NS vortioxetine (Trintellix) 10 mg PO DAILY Tobacco use date assessed: 12/22/23 Dental Screening Dental Screen Date: 12/22/23 Did you have a dental visit in the last 12 months?: Yes Did you have a dental problem in the last 6 months where you did not have access to dental care?: No Was dental information given to patient?: Patient has dentist HPI MRI Reschedule HPI Details CT showed multiple levels of DDD and DJD LS spine; MR recommended; ebony lower back with radiation down right leg PFSH Medical History Bronchomalacia Personal history of nicotine dependence Vitamin D deficiency Thyroid nodule Hypothyroidism Cough Asthma Pulmonary nodules Surgical History S/P thyroid biopsy History of colonoscopy Hx of breast implant Hx of hysterectomy Family History Father CVD (cardiovascular disease) Mental health disorder Mother Arthritis of knee Social History Housing: [facility] Patient Tobacco Use Status: Current everyday Tobacco user Tobacco use type: Cigarette Cigarettes Per Day: 15 Years Smoked: 36 e-Cigarette/Vaping Use: Never Used Second Hand Smoke Exposure: Yes service: No Current occupational status: employed Cognitive needs: No Hearing needs: No Vision needs: Yes Questionnaire PHQ-9 Over the last 2 weeks, how often have you been bothered by any of the following problems? 1. Little interest or pleasure in doing things: not at all 2. Feeling down, depressed, or hopeless: not at all 3. Trouble falling or staying asleep, or sleeping too much: not at all 4. Feeling tired or having little energy: not at all 5. Poor appetite or overeating: not at all 6. Feeling bad about yourself - or that you are a failure or have let yourself or your family down: not at all 7. Trouble concentrating on things, such as reading the newspaper or watching television: not at all 8. Moving or speaking so slowly that other people could have noticed. Or the opposite - being so fidgety or restless that you have been moving around a lot more than usual: not at all 9. Thoughts that you would be better off or of hurting yourself in some way: not at all Total score: 0 Depression Screening Interpretation: Negative Depression Screening Done: Yes 33195 - PHQ-9 Billing: Yes Source: Developed by Drs. Camilo Chairez, Usha Betancourt, Bry Barry and colleagues, with an educational miguelito from [employer]. Thrive Questionnaire Date Thrive assessed: 12/22/23 I am a: Patient What is your living situation today?: I have a steady place to live Within the past 12 months, did the food you bought not last and you didn't have the money to get more?: Never true Within the past 12 months, did you worry whether your food would run out before you got money to buy more?: Never true Do you have trouble paying for medicines?: No Do you have trouble getting transportation to medical appointments?: No Do you have trouble paying your heating and electricity bill?: No Do you have trouble taking care of your child, family member or friend?: No Do you have trouble with day-to-day activities such as bathing, preparing meals, shopping, managing finances, etc.?: No Are you currently unemployed and looking for a job?: No Are you interested in more education?: No Please select the resources that you would like help with: None THRIVE Score: 0 AUDIT C Alcohol Use Questionnaire (AUDIT-C) 1. How often do you have a drink containing alcohol?: Never Total Score: 0 FRANCO-7 AMB Questionnaire FRANCO-7 Date FRANCO - 7 assessed: 12/22/23 Feeling nervous, anxious, or on edge: 0 = Not at all Not being able to stop or control worryin = Not at all Worrying too much about different things: 0 = Not at all Trouble relaxin = Not at all Being so restless that it is hard to sit still: 0 = Not at all Becoming easily annoyed or irritable: 0 = Not at all Feeling afraid as if something awful might happen: 0 = Not at all Total FRANCO-7 score (0-4 normal; 5-9 mild; 10-14 moderate; 15-21 severe): 0 Source: Developed by Drs. Camilo Chairez, Usha Betancourt, Bry Barry and colleagues, with an educational miguelito from [employer]. Review of Systems Const Denies chills, Denies headache(s) and Denies weight loss ENT Denies headache(s) Card Denies chest pain, Denies syncope, Denies irregular heart rhythm and Denies dyspnea Resp Denies chest congestion, Denies cough and Denies dyspnea GI Denies abdominal pain, Denies change in stool character, Denies nausea and Denies vomiting Musc Denies deformity and Denies joint swelling Neuro Denies syncope and Denies headache(s) Physical exam (Primary Care) Vital Signs: Last Vital Signs Pulse 85 12/22/23 08:32 BP 122/82 12/22/23 08:32 Pulse Ox 96 12/22/23 08:32 Oxygen Delivery Method Room Air 12/22/23 08:32 BMI result Body Mass Index 25.2 Tobacco/Smoking Status: Tobacco use Status Tobacco use date assessed 12/22/23 12/22/23 08:41 Patient Tobacco Use Status Current everyday Tobacco 12/22/23 08:33 Tobacco use type Cigarette 12/22/23 08:33 e-Cigarette/Vaping Use Never Used 12/22/23 08:33 PHQ-9: PHQ-9 Score PHQ-9: Total score 0 12/22/23 08:41 Depression Screening Interpretation: Negative Thrive Assessment: Date of Thrive Assessment Date Thrive assessed 12/22/23 12/22/23 08:41 Const General: cooperative, comfortable, no acute distress and alert Neck Neck: Yes no lymphadenopathy Thyroid: Thyroid normal Resp Effort & Inspection: normal respiratory effort Auscultation: clear to auscultation bilaterally Percussion: percussion normal Cardio Jugular venous distension: no JVD Palpation: normal PMI Rate: regular rate Rhythm: regular rhythm Heart sounds: S1 normal heart sound present and S2 normal heart sound present GI Inspection: Yes normal to inspection Palpation (GI): No hepatosplenomegaly present Skin General skin exam: no rashes or lesions noted Extrem General: Yes no clubbing, cyanosis or edema Assessment and Plan Assessment & Plan (1) Lumbar disc disease: Code(s): M51.9 - Unspecified thoracic, thoracolumbar and lumbosacral intervertebral disc disorder Plan: will order MR; will need spine referral after Orders: Orders MR lumbar spine wo con Today M51.9 - Unspecified thoracic, thoracolumbar and lumbosacral intervertebral disc disorder Coding Level of Care Code Est Pt Level 3 (61019) Diagnoses Lumbar disc disease M51.9
== END 2023-12-22 09:02 | disposition home or self-care (01) ==
PROVIDERS: PCP Internal Medicine; Visit Provider Internal Medicine
DX: M51.9 Unspecified thoracic, thoracolumbar and lumbosacral intervertebral disc disorder (principal)
CPT/HCPCS: 99213

== ENCOUNTER 2024-02-04 10:39 | Outpatient (REF) | payer OTHER, SELFPAY | END 2024-02-04 10:40 | disposition home or self-care (01) | LOC: CF 10:39 | PROVIDERS: PCP Internal Medicine; Visit Provider Physician Assistant | DX: Z13.89 Encounter for screening for other disorder (principal) ==

== ENCOUNTER 2024-02-04 10:39 | Outpatient (AMB) | payer OTHER, SELFPAY ==
--- NOTE | 2024-02-04 10:55 | HO.SPINEOV ---
"Intake Intake Visit Reasons: Low back pain Intake Note: Ms. 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 She is a very nice 53-year-old female who presents to the office today for evaluation of chronic low back pain and chronic right anterior groin/hip pain. She has had back pain for many years. 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 That often requires her to do heavy lifting of patients in transfers etc.. She has not have any shooting pain down the legs. The main thing is chronic midline back pain which extends from her thoracic spine down into her lower lumbar and even into her SI joints. She is tried anti-inflammatories without much effect. The pain used to be just intermittent but now it is gotten to where it is every single day she is having severe pain in her back with activity. It even bothers her at night as well. When she sleeps she has to curl herself up in a position need a chest where she can get some relief. She also reports that she has had a chronic right anterior groin/hip pain going on now for least a year. It requires her to have to angle her hip and rotator foot externally in order to walk normal and in order to go up and downstairs. That has been getting steadily worse as well and has become quite irritating. She did briefly try physical therapy but did not find any meaningful value in it so she stopped it. She comes today with an MRI showing degenerative disc disease. PMH: She is otherwise healthy, history of hypothyroidism, depression, hysterectomy, history of breast augmentation Social hx: Smokes a half pack a day, no recreational drug use Medications: Ibuprofen, Synthroid, Cymbalta, Lamictal, Klonopin, Trintellix Allergies: Gabapentin Physical exam: Awake alert oriented no acute distress, she is uncomfortable with standing. I had her lay on the examining table and put her through testing of her hip and she does have significant pain in the right anterior groin with ALEJANDRA testing. Positive finger Camron test. Negative Gaenslen test. Strength and reflexes normal. Imaging review: Lumbar MRI done a [facility] shows very mild degenerative disc disease. The radiology report suggests that there disc issues extending from the lumbar to the thoracic but really these are very mild degenerative changes and nothing that would expect would cause significant back pain. Impression: 53-year-old female presents to the office today for evaluation of chronic midline back pain which extends from her thoracic down to her lumbar area including her SI joints. More recently has had development of a right anterior groin pain which is quite severe and gives her a lot of difficulty when she is walking or going up and downstairs. She has to angle her foot outward when she is trying to go up and down stairs because the pain has gotten that bad. She has positive ALEJANDRA sign on the right giving her a lot of discomfort. In terms of her back pain, I am not sure where the source is coming from as she has only very mild disc degeneration. I think it would be helpful for her to see physiatry, she works at [facility] so I will refer her to Dr. Angeles. I will also get right hip x-rays and will plan for a referral to orthopedics for evaluation of her right hip depending on the results. She does not need any lumbar surgery from our standpoint and can follow up with us on an as-needed basis. Thank you for allowing us to care for your patient. The total time spent with this visit with this patient was 45 minutes reviewing history, physical exam, lumbar imaging review, and implementation of treatment plan or further diagnostic testing Arden Oliveira MD,PhD [facility] [employer] Orders: Orders XR hip RT min 2V Today M25.559 - Pain in unspecified hip Referrals Physiatry Referral G89.29 - Other chronic pain, M53.3 - Sacrococcygeal disorders, not elsewhere classified Coding Level of Care Code New Pt Level 4 (17557) Diagnoses Hip pain M25.559 Chronic SI joint pain M53.3; G89.29"
== END 2024-02-04 11:31 | disposition home or self-care (01) ==
PROVIDERS: PCP Internal Medicine; Referring Provider Internal Medicine; Visit Provider Physician Assistant
DX: M25.559 Pain in unspecified hip (principal); M53.3 Sacrococcygeal disorders, not elsewhere classified; G89.29 Other chronic pain
CPT/HCPCS: 99204

== ENCOUNTER 2024-02-08 15:04 | Outpatient (AMB) | payer OTHER, SELFPAY ==
[2024-02-08 15:12] VITALS: BP 130/76; PULSE 77; BMI 25.1
--- NOTE | 2024-02-08 15:12 | MHC.OFFVIS ---
Intake Vital Signs 02/08/24 15:12 Height 5 ft 4 in Weight 146 lb 2.664 oz BMI 25.1 BP 130/76 Blood Pressure Location Lt brachial Position Sitting Pulse 77 Pulse Source Pulse Oximeter Intake Visit Reasons: F/U Hypothyroidism and thyroid-confirmed Intake Note: Patient presents today for Hypothyroidism follow up. 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 Accompanied by: Self / Same As Patient Allergies No Known Allergies [No Known Allergies*] Allergy (Verified 02/08/24 15:15) Medication List - Last Reconciled 02/08/24 by Camilo Sousa MD albuterol sulfate 90 mcg/actuation 2 inhalations inhalation Q6H PRN 30 days cholecalciferol (vitamin D3) 50 mcg PO DAILY 30 days clonazepam 1 mg PO TID PRN duloxetine 30 mg PO DAILY ibuprofen 800 mg PO Q8H PRN lamotrigine 200 mg PO DAILY nicotine 1 patch transdermal DAILY 28 days ondansetron HCl 4 mg PO DAILY PRN Synthroid (levothyroxine) 88 mcg PO DAILY NS vortioxetine (Trintellix) 10 mg PO DAILY HPI HPI Comments History of Present Illness Details 53 YO Female with PMHx Hypothyroidism who is seen in F/U for Hypothyroidism. She reports a longstanding history of Hypothyroidism, first diagnosed in [address] 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 She has trialed different regimens of thyroid hormone, including Levothyroxine, then levothyroxine with cytomel, [place] thyroid and Nature thyroid. She reports she had worsening of symptoms on all of these with worsening fatigue. She stopped treatment due to this and was off treatment for approximately 2 years, from 2017 to 2019. She then presented to see me in mid 2019. Labs revealed hypothyroidism and TPO and TG antibodies positive, indicating Hari's disease. She was started on Synthroid (brand name) 50 mcg PO daily, but reported symptoms of jitters and palpitations, so she stopped this of her own accord. After some persuasion, she began taking the 50 mcg daily again, and does report the symptoms of jitters and palpitations resolved spontaneously. She is now on a dose of synthroid brand name 50 mcg PO 5 days a week and 100 mcg PO 2 days per week. TSH is at goal. She reports feeling tired. She also had a thyroid US which revealed a gland consistent with a jamison-gland, and a 1.2 cm R mid pole thyroid nodule. She underwent FNA biopsy of this nodule 09/07/19 with Benign ([place] Category II) Cytology. She was noted to have cervical lymphadenopathy and underwent FNA biopsy of a L level 2 cervical lymph node measuring 2.9 cm 08/21/2020, with benign cytology. Repeat thyroid US 05/22/2022 reveals a 1.1 cm hyperechoic R sided nodule. Unchanged from prior. Has no specific complaints today. No longer has menses due to hysterectomy. Does not take biotin. Thyroid US: 06/30/19 Right Thyroid Lobe: 5.1 x 1.8 x 1.9 cm, volume 9.1 mL. Parenchyma: The gland echotexture is heterogeneous. Thyroid vascularity is increased. Left Thyroid Lobe: 5.0 x 1.7 x 1.3 cm, volume 6.2 mL. Parenchyma: The gland echotexture is heterogeneous. Thyroid vascularity is normal. Isthmus: 0.4 cm in maximum AP dimension. RIGHT THYROID LOBE: There is 1 nodule seen. 1. Location: Midpole. Size: 1.2 x 0.9 x 0.9 cm. Nodule characteristics: Hyperechoic, smoothly marginated with intranodular flow. ISTHMUS: No nodules. LEFT THYROID LOBE: No nodules. NODES: There is a 1 cm short-axis lymph node right neck. Labs: 12/15/2022 TSH 3.81 Currently on Synthroid 88 mcg q.d. C/o headache , body aches PFSH Medical History Bronchomalacia Personal history of nicotine dependence Vitamin D deficiency Thyroid nodule Hypothyroidism Cough Asthma Pulmonary nodules Surgical History S/P thyroid biopsy History of colonoscopy Hx of breast implant Hx of hysterectomy Family History Father CVD (cardiovascular disease) Mental health disorder Mother Arthritis of knee Social History Housing: Condominium Patient Tobacco Use Status: Current everyday Tobacco user Tobacco use type: Cigarette Cigarettes Per Day: 15 Years Smoked: 36 e-Cigarette/Vaping Use: Never Used Second Hand Smoke Exposure: Yes service: No Current occupational status: employed Cognitive needs: No Hearing needs: No Vision needs: Yes Physical Exam Const Other: Thyroid gland is top-normal in size weighs about 20 g . There are no thyroid nodules palpated Assessment & Plan Assessment & Plan (1) Hypothyroidism: Code(s): E03.9 - Hypothyroidism, unspecified Plan: This is a 53-year-old white female with a history of hypothyroidism currently being treated with 88 mcg Synthroid. She appears to be clinically euthyroid with very slightly suppressedl TSH. Plan is to continue current management. (2) Thyroid nodule: Comment: (Right thyroid nodule - benign FNA 2019) Code(s): E04.1 - Nontoxic single thyroid nodule Plan: Recent ultrasound shows stability in the size of the nodule. Will continue to observe Orders: Orders Free T4 (Free Thyroxine) 6 Months E03.9 - Hypothyroidism, unspecified Thyroid Stimulating Hormone 6 Months E03.9 - Hypothyroidism, unspecified Quality Reporting (2019) Adult ([facility] [address] 138/01/06/69) Smoking risk assessment performed?: Yes Patient Tobacco Use Status: Current everyday Tobacco user Coding Level of Care Code Est Pt Level 3 (56132) Diagnoses Hypothyroidism E03.9 Thyroid nodule E04.1
== END 2024-02-08 15:27 | disposition home or self-care (01) ==
PROVIDERS: PCP Internal Medicine; Visit Provider Internal Medicine Endocrinology, Diabetes & Metabolism
DX: E03.9 Hypothyroidism, unspecified (principal); E04.1 Nontoxic single thyroid nodule
CPT/HCPCS: 99213

== ENCOUNTER → 2024-02-08 15:04 | Outpatient (BNVA) | payer OTHER, SELFPAY | PROVIDERS: PCP Internal Medicine; Visit Provider Internal Medicine Endocrinology, Diabetes & Metabolism ==

== ENCOUNTER 2024-02-16 13:00 | Outpatient (AMB) | payer OTHER, SELFPAY ==
[2024-02-16 13:44] VITALS: BMI 25.1
--- NOTE | 2024-02-16 13:44 | MHC.OFFVIS ---
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 The patient also has low back pain which radiates into her right thigh. She was seen in the Neurosurgery Department here at [facility]. The patient was told that her lumbar spine MRI does not show any significant pathology and that her symptoms may be due to a right hip disorder. The patient's pain has gotten worse over the last year. The patient has difficulty walking even short distances because of her pain. She states that her pain is a 10/10. She has tried Tylenol and anti-inflammatory medicines which gave her minimal relief. She has also done physical therapy exercises which aggravated her pain. Allergies No Known Allergies [No Known Allergies*] Allergy (Verified 02/16/24 13:50) Medication List - Last Reconciled 02/16/24 by Hernán Parker MD albuterol sulfate 90 mcg/actuation 2 inhalations inhalation Q6H PRN 30 days cholecalciferol (vitamin D3) 50 mcg PO DAILY 30 days clonazepam 1 mg PO TID PRN duloxetine 30 mg PO DAILY ibuprofen 800 mg PO Q8H PRN lamotrigine 200 mg PO DAILY nicotine 1 patch transdermal DAILY 28 days ondansetron HCl 4 mg PO DAILY PRN Synthroid (levothyroxine) 88 mcg PO DAILY NS vortioxetine (Trintellix) 10 mg PO DAILY PFSH Medical History Bronchomalacia Personal history of nicotine dependence Vitamin D deficiency Thyroid nodule Hypothyroidism Cough Asthma Pulmonary nodules Surgical History S/P thyroid biopsy History of colonoscopy Hx of breast implant Hx of hysterectomy Family History Father CVD (cardiovascular disease) Mental health disorder Mother Arthritis of knee Social History (Updated 02/16/24 @ 13:51 by Kaycee Caicedo CMA) [facility]: [facility] Patient Tobacco Use Status: Current everyday Tobacco user Tobacco use type: Cigarette Cigarettes Per Day: 15 Years Smoked: 36 e-Cigarette/Vaping Use: Never Used Second Hand Smoke Exposure: Yes service: No Current occupational status: employed 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 Cognitive needs: No Hearing needs: No Vision needs: Yes Physical Exam Vital Signs: BMI result Body Mass Index 25.1 Const Other: Well-nourished well-developed very friendly female awake alert and oriented x3 in no acute distress Extrem Other: Bilateral lower extremity examination shows good capillary refill, no skin lesions noted, normal sensation light touch Right hip examination shows decreased range of motion when compared to her left hip, pain with range of motion, mild tenderness over her bursa, increased pain with forward flexion and internal rotation Assessment & Plan Assessment & Plan (1) Labral tear of right hip joint: Code(s): S73.191A - Other sprain of right hip, initial encounter Plan Ms. Masters presents with right hip pain possibly due to a labral tear. Thus, I will send the patient for an MRI arthrogram of her right hip for further evaluation. I will see her back once the imaging studies completed to discuss the findings and treatment options. Feel free to call me at any time should questions regarding her orthopedic management arise. Thank you very much for asking me to see this very friendly patient. I spent 22 minutes in reviewing the patient's records and imaging studies, seeing the patient and documenting in the medical record. Orders: Orders FL arthrogram hip RT Today S73.191A - Other sprain of right hip, initial encounter MR hip RT wo/w con Today S73.A - Other sprain of right hip, initial encounter Quality Reporting (2019) Adult ([facility] 138/01/06/69) Smoking risk assessment performed?: Yes Patient Tobacco Use Status: Current everyday Tobacco user Coding Level of Care Code New Pt Level 2 (03398) Diagnoses Labral tear of right hip joint S73.191A
== END 2024-02-16 14:07 | disposition home or self-care (01) ==
LOC: HO.HOS 13:00
PROVIDERS: PCP Internal Medicine; Visit Provider Orthopaedic Surgery
DX: S73.191A Other sprain of right hip, initial encounter (principal)
CPT/HCPCS: 99202

== ENCOUNTER → 2024-02-16 13:00 | Outpatient (BNVA) | payer OTHER, SELFPAY | PROVIDERS: PCP Internal Medicine; Visit Provider Orthopaedic Surgery ==

== ENCOUNTER 2024-07-19 11:08 | Outpatient (AMB) | payer OTHER, SELFPAY ==
--- NOTE | 2024-07-19 11:09 | A.OFFVIS_ITS ---
Vital Signs 07/19/24 11:10 Height 5 ft 4 in Weight 146 lb BMI 25.1 Intake Visit Reasons: OV- RT Hip f/u, review imaging Intake Note: Breana is a 54 year old female who presents with complaints of progressively worsening right hip pain. The patient also has low back pain which radiates into her right thigh. She was seen in the Neurosurgery Department here at [facility]. The patient was told that her lumbar spine MRI does not show any significant pathology and that her symptoms may be due to a right hip disorder. The patient's pain has gotten worse over the last year. The patient has difficulty walking even short distances because of her pain. She states that her pain is a 10/10. She has tried Tylenol and anti-inflammatory medicines which gave her minimal relief. She has also done physical therapy exercises which aggravated her pain. Allergies No Known Allergies [No Known Allergies*] Allergy (Verified 02/16/24 13:50) PFSH Medical History Bronchomalacia Personal history of nicotine dependence Vitamin D deficiency Thyroid nodule Hypothyroidism Cough Asthma Pulmonary nodules Surgical History S/P thyroid biopsy History of colonoscopy Hx of breast implant Hx of hysterectomy Family History Father CVD (cardiovascular disease) Mental health disorder Mother Arthritis of knee Social History (Updated 02/16/24 @ 13:51 by Kaycee Caicedo [facility]) Housing: Condominium Patient Tobacco Use Status: Current everyday Tobacco user Tobacco use type: Cigarette Cigarettes Per Day: 15 Years Smoked: 36 e-Cigarette/Vaping Use: Never Used Second Hand Smoke Exposure: Yes service: No Current occupational status: employed 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 Cognitive needs: No Hearing needs: No Vision needs: Yes Physical Exam Vital Signs: BMI result Body Mass Index 25.1 Const Other: Well-nourished well-developed very friendly female awake alert and oriented x3 in no acute distress Extrem Other: Bilateral lower extremity examination shows good capillary refill, no skin lesions noted, normal sensation light touch Right hip examination shows decreased range of motion when compared to her left hip, pain with range of motion, increased pain with forward flexion and internal rotation Quality Reporting (2020) Adult ([facility] 138/2/22/69) Smoking risk assessment performed?: Yes Patient Tobacco Use Status: Current everyday Tobacco user Results Reviewed Results Reviewed: MRI arthrogram of the patient's right hip shows minimal degenerative changes, tearing of the superior/anterior labrum Assessment & Plan Assessment & Plan (1) Labral tear of right hip joint: Code(s): S73.191A - Other sprain of right hip, initial encounter Category: Medical Plan Ms. Masters presents with right hip pain due to a labral tear. I had a lengthy discussion with the patient regarding the treatment options. At this point the patient appears to be failing continued non operative treatments. The patient may be a candidate for right hip arthroscopic surgery. No one here at [facility] performs this type of surgery. Thus, I did give her contact information to reach Dr. Valentino in [place], [place] who specializes in this type of procedure. The patient will follow-up as instructed. Feel free to call me at any time should questions regarding her orthopedic management arise. I spent 21 minutes in reviewing the patient's records and imaging studies, seeing the patient and documenting in the medical record. Coding Level of Care Code Est Pt Level 3 (59086) Complex EM visit Add On G2211 Diagnoses Labral tear of right hip joint S73.191A
[2024-07-19 11:10] VITALS: BMI 25.1
== END 2024-07-19 11:30 | disposition home or self-care (01) ==
PROVIDERS: PCP Internal Medicine; Visit Provider Orthopaedic Surgery
DX: S73.191A Other sprain of right hip, initial encounter (principal)
CPT/HCPCS: 99213; G2211

== ENCOUNTER → 2024-07-19 11:08 | Outpatient (BNVA) | payer OTHER, SELFPAY | PROVIDERS: PCP Internal Medicine; Visit Provider Orthopaedic Surgery ==

== ENCOUNTER 2024-08-23 07:56 | Outpatient (AMB) | payer OTHER, SELFPAY ==
--- NOTE | 2024-08-23 08:01 | MHC.OFFVIS ---
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 Accompanied by: Self / Same As Patient Allergies No Known Allergies [No Known Allergies*] Allergy (Verified 08/23/24 08:05) Medication List - Last Reconciled 08/23/24 by Camilo Sousa MD albuterol sulfate 90 mcg/actuation 2 inhalations inhalation Q6H PRN 30 days cholecalciferol (vitamin D3) 50 mcg PO DAILY 30 days clonazepam 1 mg PO TID PRN duloxetine 30 mg PO DAILY ibuprofen 800 mg PO Q8H PRN lamotrigine 200 mg PO DAILY nicotine 1 patch transdermal DAILY 28 days ondansetron HCl 4 mg PO DAILY PRN Tirosint (levothyroxine) 88 mcg PO DAILY NS vortioxetine (Trintellix) 10 mg PO DAILY HPI Comments Details: 53 YO Female with PMHx Hypothyroidism who is seen in F/U for Hypothyroidism. She reports a longstanding history of Hypothyroidism, first diagnosed in [address] 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 She has trialed different regimens of thyroid hormone, including Levothyroxine, then levothyroxine with cytomel, [place] thyroid and Nature thyroid. She reports she had worsening of symptoms on all of these with worsening fatigue. She stopped treatment due to this and was off treatment for approximately 2 years, from 2017 to 2019. She then presented to see me in mid 2019. Labs revealed hypothyroidism and TPO and TG antibodies positive, indicating Hari's disease. She was started on Synthroid (brand name) 50 mcg PO daily, but reported symptoms of jitters and palpitations, so she stopped this of her own accord. After some persuasion, she began taking the 50 mcg daily again, and does report the symptoms of jitters and palpitations resolved spontaneously. She is now on a dose of synthroid brand name 50 mcg PO 5 days a week and 100 mcg PO 2 days per week. TSH is at goal. She reports feeling tired. She also had a thyroid US which revealed a gland consistent with a jamison-gland, and a 1.2 cm R mid pole thyroid nodule. She underwent FNA biopsy of this nodule 09/07/19 with Benign ([place] Category II) Cytology. She was noted to have cervical lymphadenopathy and underwent FNA biopsy of a L level 2 cervical lymph node measuring 2.9 cm 08/21/2020, with benign cytology. Repeat thyroid US 05/22/2022 reveals a 1.1 cm hyperechoic R sided nodule. Unchanged from prior. Has no specific complaints today. No longer has menses due to hysterectomy. Does not take biotin. Thyroid US: 06/30/19 Right Thyroid Lobe: 5.1 x 1.8 x 1.9 cm, volume 9.1 mL. Parenchyma: The gland echotexture is heterogeneous. Thyroid vascularity is increased. Left Thyroid Lobe: 5.0 x 1.7 x 1.3 cm, volume 6.2 mL. Parenchyma: The gland echotexture is heterogeneous. Thyroid vascularity is normal. Isthmus: 0.4 cm in maximum AP dimension. RIGHT THYROID LOBE: There is 1 nodule seen. 1. Location: Midpole. Size: 1.2 x 0.9 x 0.9 cm. Nodule characteristics: Hyperechoic, smoothly marginated with intranodular flow. ISTHMUS: No nodules. LEFT THYROID LOBE: No nodules. NODES: There is a 1 cm short-axis lymph node right neck. Labs: 12/15/2022 TSH 3.81 Currently on Synthroid 88 mcg q.d. recent blood work was done at [facility]. feeling good. Was off Synthroid inconsistently [facility] Medical History Bronchomalacia Personal history of nicotine dependence Vitamin D deficiency Thyroid nodule Hypothyroidism Cough Asthma Pulmonary nodules Surgical History S/P thyroid biopsy History of colonoscopy Hx of breast implant Hx of hysterectomy Family History Father CVD (cardiovascular disease) Mental health disorder Mother Arthritis of knee Social History (Updated 02/16/24 @ 13:51 by Kaycee Caicedo [employer]UR TRAP[employer]) [facility] Patient Tobacco Use Status: Current everyday Tobacco user Tobacco use type: Cigarette Cigarettes Per Day: 15 Years Smoked: 36 e-Cigarette/Vaping Use: Never Used Second Hand Smoke Exposure: Yes service: No Current occupational status: employed 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 There are no thyroid nodules palpated Quality Reporting (2019) Adult ([facility] 138/01/06/69) Smoking risk assessment performed?: Yes Patient Tobacco Use Status: Current everyday Tobacco user Assessment & Plan Assessment & Plan (1) Hypothyroidism: Code(s): E03.9 - Hypothyroidism, unspecified Category: Medical Plan: This is a 54-year-old white female with a history of hypothyroidism currently being treated with 88 mcg Synthroid. She appears to be clinically euthyroid but appears to be biochemically hypothyroid based on recent blood test. Admits to noncompliance and some intolerance to Synthroid with headaches Plan is to change the Synthroid to Tirosint 88 mcg and recheck TSH and free T4 in 6 weeks time (2) Thyroid nodule: Comment: (Right thyroid nodule - benign FNA 2018) Code(s): E04.1 - Nontoxic single thyroid nodule Category: Medical Plan: Plan is to repeat a thyroid ultrasound a Umesh Kwan Orders: Orders Thyroid Stimulating Hormone 6 Weeks E03.9 - Hypothyroidism, unspecified Free T4 (Free Thyroxine) 6 Weeks E03.9 - Hypothyroidism, unspecified US thyroid Today E04.2 - Nontoxic multinodular goiter Medications: New Tirosint (levothyroxine) 88 mcg PO DAILY 30 caps 5RF NS Discontinued Synthroid (levothyroxine) Discontinued Reason: Doctor's Order 88 mcg PO DAILY 90 tabs 1RF NS E03.9 - Hypothyroidism, unspecified Coding Level of Care Code Est Pt Level 3 (47523) Diagnoses Hypothyroidism E03.9 Thyroid nodule E04.1
[2024-08-23 08:02] VITALS: BP 112/56; PULSE 79; BMI 26.1
== END 2024-08-23 08:30 | disposition home or self-care (01) ==
PROVIDERS: PCP Internal Medicine; Visit Provider Internal Medicine Endocrinology, Diabetes & Metabolism
DX: E03.9 Hypothyroidism, unspecified (principal); E04.1 Nontoxic single thyroid nodule
CPT/HCPCS: 99213

== ENCOUNTER → 2024-08-23 07:56 | Outpatient (BNVA) | payer OTHER, SELFPAY | PROVIDERS: PCP Internal Medicine; Visit Provider Internal Medicine Endocrinology, Diabetes & Metabolism ==